=== PATIENT | male | born 1990 | race Caucasian/White ===

== ENCOUNTER 2016-05-22 10:58 | Inpatient (IN) | payer OTHER ==
[2016-05-22 11:06] VITALS: BMI 27.3
--- NOTE | 2016-05-22 12:46 | HP ---
COWS - Scale Resting Pulse: 0= [place] 80 or Below Sweatin= Chills/Flushing Restless Observation: 3= Extraneous Movement Pupil Size: 2= Moderately Dilated Bone or Joint Aches: 2= Severe Diffuse Aches Runny Nose/ Eye Tearin= Runny Nose/Eyes GI Upset > 30mins: 0= None Tremor Observation: 2= Slight Tremor Visible Yawning Observation: 2= >3x During Session Anxiety or Irritability: 2=Irritable/Anxious Goose Flesh Skin: 0=Smooth Skin COWS Score: 16 CIWA Score - CIWA Score Nausea/Vomitin-No Nausea/No Vomiting Muscle Tremors: 4-Moderate,w/Arms Extend Anxiety: 4-Mod. Anxious/Guarded Agitation: 4-Moderately Restless Paroxysmal Sweats: 2 Orientation: 0-Oriented Tacttile Disturbances: 3-Moderate Itch/Numb/Burn Auditory Disturbances: 0-None Visual Disturbances: 0-None Headache: 0-None Present CIWA-Ar Total Score: 17 Admission ROS BHS - HPI Chief Complaint: DETOX TX FOR HEROIN AND ALCOHOL DEPENDENCE Allergies/Adverse Reactions: Allergies Allergy/AdvReac Type Severity Reaction Status Date / Time Fish Containing Products Allergy Severe Difficulty Verified 05/22/16 12:18 Breathing History of Present Illness: 25 Y/O MALE WITH A HX OF HEROIN AND ALCOHOL DEPENDENCE SEEKING DETOX TX. STATES FIRST TIME IN DETOX. Exam Limitations: No Limitations - Ebola screening Have you traveled outside of the country in the last 21 days: No Have you had contact with anyone from an Ebola affected area: No Have you been sick,other than usual withdrawal symptoms: No Do you have a fever: No - Review of Systems Constitutional: Chills, Night Sweats, Changes in sleep EENT: reports: Nose Congestion Respiratory: reports: Shortness of Breath (HX ASTHMA), Wheezing Cardiac: reports: Lightheadedness GI: reports: Constipated : reports: No Symptoms Reported Musculoskeletal: reports: Joint Pain, Muscle Pain Integumentary: reports: No Symptoms Reported Neuro: reports: Headache, Tremors, Unsteady Gait, Dizziness Endocrine: reports: No Symptoms Reported Hematology: reports: No Symptoms Reported Psychiatric: reports: Orientated x3, Agitated, Anxious Other Systems: Reviewed and Negative Patient History - Patient Medical History Hx Anemia: No Hx Asthma: Yes (MDI) Hx Chronic Obstructive Pulmonary Disease (COPD): No Hx Cardiac Disorders: No Hx Hypertension: No Hx Hypercholesterolemia: No HX Cerebrovascular Accident: No Hx Seizures: No Hx Diabetes: No Hx Gastrointestinal Disorders: No Hx Genitourinary Disorders: No Hx Sexually Transmitted Disorders: No Hx Renal Disease (ESRD): No Hx Thyroid Disease: No Hx Human Immunodeficiency Virus (HIV): No (NEGATIVE HX) Hx Hepatitis C: No Hx Depression: No Hx Suicide Attempt: No (DENIES) Hx Schizophrenia: No - Patient Surgical History Past Surgical History: No - PPD History Previous Implant?: Yes Documented Results: Negative w/o proof Implanted On Prior [facility] Admission?: No PPD to be Administered?: Yes - Reproductive History Patient is a Female of Child Bearing Age (11 -55 yrs old): No (MALE) - Smoking Cessation Smoking history: Current every day smoker Have you smoked in the past 12 months: Yes Aproximately how many cigarettes per day: 20 Hx Chewing Tobacco Use: No Initiated information on smoking cessation: Yes 'Breaking Loose' booklet given: 05/22/16 - Substance & Tx. History Hx Alcohol Use: Yes (WHISKEY) Hx Substance Use: Yes (HEROIN/MARIJUANA/PERCOCETS) Substance Use Type: Alcohol, Heroin, Marijuana, Opiates (PERCOCETS), Tranquilizers (USED ONE YR AGO) - Substances Abused Heroin Route: Inhalation Frequency: Daily Amount used: 15 BAGS Age of first use: 20 Date of Last Use: 05/21/16 Alcohol Route: Oral Frequency: Daily Amount used: 1 PINT [place]ISKEY Age of first use: 15 Date of Last Use: 05/21/16 Marijuana/Hashish Route: Smoking Frequency: Daily Amount used: 6 BLUNTS Age of first use: 14 Date of Last Use: 05/21/16 Family Disease History - Family Disease History Family Disease History: Respiratory: Brother (ASTHMA), Sister (ASTHMA) Admission Physical Exam BHS - Vital Signs Vital Signs: Vital Signs - 24 hr 05/22/16 11:02 Temperature 98.2 F Pulse Rate 89 Respiratory 20 Rate Blood Pressure 125/77 - Physical General Appearance: Yes: Moderate Distress, Irritable, Anxious HEENTM: Yes: EOMI, Normocephalic, ALEXEY, Pharynx Normal, Photophobia, Nasal Congestion Respiratory: Yes: Chest Non-Tender, Lungs Clear, Normal Breath Sounds, No Respiratory Distress Neck: Yes: Supple, Trachea in good position Cardiology: Yes: Regular Rhythm, Regular Rate, S1, S2 Abdominal: Yes: Normal Bowel Sounds, Non Tender Genitourinary: Yes: Other (N/C) Back: Yes: Within Normal Limits Musculoskeletal: Yes: full range of Motion, Gait Steady Extremities: Yes: Normal Range of Motion, Non-Tender Neurological: Yes: civil project engineer II-XII NML intact, Fully Oriented, Alert, Motor Strength 5/5 Integumentary: Yes: Dry, Warm Lymphatic: Yes: Within Normal Limits - Diagnostic (1) Opioid dependence with withdrawal Current Visit: Yes Status: Acute (2) Alcohol dependence with uncomplicated withdrawal Current Visit: Yes Status: Acute (3) Asthma Current Visit: Yes Status: Chronic Qualifiers: Asthma severity: mild intermittent Asthma complication type: uncomplicated Qualified Code(s): J45.20 - Mild intermittent asthma, uncomplicated Cleared for Admission [facility] - Detox or Rehab [facility] Level of Care: Medically Managed Detox Regimen/Protocol: Methadone/Valium (REQUESTS VALIUM INSTEAD OF LIBRIUM.) [facility] Breath Alcohol Content Breath Alcohol Content: 0 Urine Drug Screen - Results Drug Screen Negative: No Urine Drug Screen Results: OPI-Opiates, BZO-Benzodiazepines, TCA-Tricyclic Antidepress, OXY-Oxycodone
[2016-05-22] MEDS ORDERED: NICOTINE POLACRILEX 4 MG GUM BUC PRN (12:53)
[2016-05-22] MEDS ORDERED: MENTHOL/PHENOL 1 EACH UD MM PRN (12:53)
[2016-05-22] MEDS ORDERED: guaiFENesin/D-METHORPHAN HB 10 ML UNIT-DOSE CUPS PO PRN (12:53)
[2016-05-22] MEDS ORDERED: ACETAMINOPHEN 325 MG TABLET (FP) PO PRN (12:53)
[2016-05-22] MEDS ORDERED: MAGNESIUM HYDROX 2400MG/30ML ORAL SUSPENSION 30 ML CUP PO PRN (12:53)
[2016-05-22] MEDS ORDERED: hydrOXYzine PAMOATE 25 MG CAPSULE (FP) PO PRN (12:53)
[2016-05-22] MEDS ORDERED: P-EPHED 60MG/TRIPROLIDI 2.5MG TABLET PO PRN (12:53)
[2016-05-22] MEDS ORDERED: MAG HYDROX/AL HYDROX/SIMETH 30 ML UNIT-DOSE CUP PO PRN (12:53)
[2016-05-22] MEDS ORDERED: LOPERAMIDE HCL 2 MG CAPSULE PO PRN (12:53)
[2016-05-22] MEDS ORDERED: IBUPROFEN 400 MG TABLET (FP) PO PRN (12:53)
[2016-05-22] MEDS ORDERED: MAGNESIUM CITRATE 300 ML BOTTLE PO PRN (12:53)
[2016-05-22] MEDS ORDERED: ALBUTEROL SO4 6.7 GM HFA INHALER IH PRN (12:57)
[2016-05-22] MEDS ORDERED: diazePAM 5 MG TABLET PO ONE (13:49)
[2016-05-22] MEDS ORDERED: METHADONE HCL 10 MG TABLET (FOR DETOX USE ONLY) PO ONE ×2 (13:51→23:00)
[2016-05-22] MEDS: diazePAM 5 MG TABLET PO SCH ×2 (14:58→22:06)
[2016-05-22] MEDS: NICOTINE 21 MG/24 HOURS TOPICAL PATCH TD SCH (15:01)
[2016-05-22 16:05] LABS: URINE APPEARANCE SLCLOUDY; URINE BILIRUBIN NEGATIVE (NEGATIVE); URINE BLOOD NEGATIVE (NEGATIVE); URINE COLOR YELLOW; URINE GLUCOSE (UA) NEGATIVE (NEGATIVE); URINE KETONE NEGATIVE (NEGATIVE); URINE LEUK ESTERASE NEGATIVE (NEGATIVE); URINE NITRITE NEGATIVE (NEGATIVE); URINE PROTEIN NEGATIVE (NEGATIVE); URINE UROBILINOGEN NEGATIVE E.U./dl (0.2-1.0)
[2016-05-22] MEDS: THIAMINE HCL 100 MG TABLET (FP) PO SCH (22:06)
[2016-05-22] MEDS: diphenhydrAMINE HCL 50 MG CAPSULE PO PRN (22:07)
[2016-05-23] MEDS: diazePAM 5 MG TABLET PO SCH ×3 (05:43→22:03)
[2016-05-23] MEDS ORDERED: METHADONE HCL 10 MG TABLET (FOR DETOX USE ONLY) PO SCH (10:00)
--- NOTE | 2016-05-23 10:16 | PN ---
S CIWA - CIWA Score Nausea/Vomitin-No Nausea/No Vomiting Muscle Tremors: 4-Moderate,w/Arms Extend Anxiety: 4-Mod. Anxious/Guarded Agitation: 4-Moderately Restless Paroxysmal Sweats: 1-Minimal Palms Moist Orientation: 0-Oriented Tacttile Disturbances: 3-Moderate Itch/Numb/Burn Auditory Disturbances: 0-None Visual Disturbances: 0-None Headache: 0-None Present CIWA-Ar Total Score: 16 BHS COWS - Scale Resting Pulse: 0= [place] 80 or Below Sweatin= Chills/Flushing Restless Observation: 3= Extraneous Movement Pupil Size: 2= Moderately Dilated Bone or Joint Aches: 4=Acute Joint/Muscle Pain Runny Nose/ Eye Tearin= Nasal Congestion GI Upset > 30mins: 1= Stomach Cramp Tremor Observation of Outstretched Hands: 1= Tremor [place], Not Seen Yawning Observation: 2= >3x During Session Anxiety or Irritability: 2=Irritable/Anxious Goose Flesh Skin: 0=Smooth Skin COWS Score: 17 [facility] Progress Note (SOAP) Subjective: ANXIETY,SWEATS,TREMORS,INTERMITTENT SLEEP Objective: 05/23/16 10:17 Vital Signs Temperature 96.5 F L 05/23/16 06:26 Pulse Rate 61 05/23/16 06:26 Respiratory Rate 18 05/23/16 06:26 Blood Pressure 124/68 05/23/16 06:26 O2 Sat by Pulse Oximetry (%) Laboratory Last Values Urine Color Yellow 05/22/16 15:00 Urine Appearance Slcloudy 05/22/16 15:00 Urine pH 7.0 (5.0-8.0) 05/22/16 15:00 Ur Specific [place] 1.021 (1.001-1.035) 05/22/16 15:00 Urine Protein Negative (NEGATIVE) 05/22/16 15:00 Urine Glucose (UA) Negative (NEGATIVE) 05/22/16 15:00 Urine Ketones Negative (NEGATIVE) 05/22/16 15:00 Urine Blood Negative (NEGATIVE) 05/22/16 15:00 Urine Nitrite Negative (NEGATIVE) 05/22/16 15:00 Urine Bilirubin Negative (NEGATIVE) 05/22/16 15:00 Urine Urobilinogen Negative E.U./dl (0.2-1.0) 05/22/16 15:00 Ur Leukocyte Esterase Negative (NEGATIVE) 05/22/16 15:00 Assessment: 05/23/16 10:17 WITHDRAWAL SX Plan: CONTINUE DETOX
[2016-05-23] MEDS: PRENATAL VITAMINS W/ FOLIC ACID TABLET (FP) PO SCH (10:18)
[2016-05-23] MEDS: diazePAM 5 MG TABLET PO PRN (10:18)
[2016-05-23] MEDS: NICOTINE 21 MG/24 HOURS TOPICAL PATCH TD SCH ×2 (10:19→13:25)
[2016-05-23 10:44] LABS: MCH 31.2 pg (25.7-33.7); MCHC 33.4 g/dl (32.0-35.9); MEAN CELL VOLUME 93.4 fl (80-96); MEAN PLT VOLUME 9.7 fl (7.5-11.1); PLATELET COUNT 253 K/MM3 (134-434); RDW 12.8 % (11.9-15.9); WHITE BLOOD COUNT 8.4 K/mm3 (4.0-10.0)
[2016-05-23 10:52] LABS: ALBUMIN 4.3 g/dl (3.4-5.0); ALK PHOS 61 U/L (45-117); ANION GAP 3 (8-16); BILIRUBIN,TOTAL 0.3 mg/dL (0.2-1.0); CALCIUM 9.6 mg/dL (8.5-10.1); CO2 35 mmol/L (21-32); GLUCOSE,RANDOM 82 mg/dL (74-106); SGOT/AST 34 U/L (15-37); SGPT/ALT 29 U/L (12-78); TOT PROT 7.5 g/dl (6.4-8.2)
[2016-05-23 11:01] LABS: SICKLE CELL SCREEN NEGATIVE (NEGATIVE)
--- NOTE | 2016-05-23 11:50 | EKG ---
Test Reason : Blood Pressure : / mmHG Vent. Rate : 062 BPM Atrial Rate : 062 BPM P-R Int : 120 ms QRS Dur : 086 ms QT Int : 426 ms P-R-T Axes : -06 036 034 degrees QTc Int : 432 ms NORMAL SINUS RHYTHM NORMAL ECG NO PREVIOUS ECGS AVAILABLE Confirmed by HERVE HARRIS, ELLIOT ([id number]) on 05/23/2016 11:50:18 AM Referred By: Confirmed By:ELLIOT EDGAR MD
[2016-05-23] MEDS: THIAMINE HCL 100 MG TABLET (FP) PO SCH (22:03)
[2016-05-23] MEDS: diphenhydrAMINE HCL 50 MG CAPSULE PO PRN (22:03)
[2016-05-24] MEDS: diphenhydrAMINE HCL 50 MG CAPSULE PO PRN ×2 (01:34→22:07)
[2016-05-24] MEDS: diazePAM 5 MG TABLET PO PRN ×4 (01:34→17:58)
[2016-05-24] MEDS: METHADONE HCL 5 MG TABLET (FOR DETOX USE ONLY) PO SCH (10:22)
[2016-05-24] MEDS: diazePAM 5 MG TABLET PO SCH ×2 (10:22→22:07)
[2016-05-24] MEDS: PRENATAL VITAMINS W/ FOLIC ACID TABLET (FP) PO SCH (10:22)
[2016-05-24] MEDS: NICOTINE 21 MG/24 HOURS TOPICAL PATCH TD SCH (10:24)
--- NOTE | 2016-05-24 10:38 | PN ---
[facility] CIWA - CIWA Score Nausea/Vomitin-No Nausea/No Vomiting Muscle Tremors: 4-Moderate,w/Arms Extend Anxiety: 4-Mod. Anxious/Guarded Agitation: 4-Moderately Restless Paroxysmal Sweats: 1-Minimal Palms Moist Orientation: 0-Oriented Tacttile Disturbances: 3-Moderate Itch/Numb/Burn Auditory Disturbances: 0-None Visual Disturbances: 0-None Headache: 0-None Present CIWA-Ar Total Score: 16 S COWS - Scale Resting Pulse: 0= [place] 80 or Below Sweatin= Chills/Flushing Restless Observation: 3= Extraneous Movement Pupil Size: 2= Moderately Dilated Bone or Joint Aches: 4=Acute Joint/Muscle Pain Runny Nose/ Eye Tearin= Nasal Congestion GI Upset > 30mins: 1= Stomach Cramp Tremor Observation of Outstretched Hands: 1= Tremor [place], Not Seen Yawning Observation: 1= 1-2x During Session Anxiety or Irritability: 2=Irritable/Anxious Goose Flesh Skin: 0=Smooth Skin COWS Score: 16 [facility] Progress Note (SOAP) Subjective: ANXIETY,SWEATS,SLIGHT TREMORS,FATIGUE. Objective: 05/24/16 10:37 Vital Signs Temperature 98.2 F 05/24/16 10:16 Pulse Rate 79 05/24/16 10:16 Respiratory Rate 18 05/24/16 10:16 Blood Pressure 120/73 05/24/16 10:16 O2 Sat by Pulse Oximetry (%) Laboratory Last Values WBC 8.4 K/mm3 (4.0-10.0) 05/23/16 05:30 RBC 4.96 M/mm3 (4.00-5.60) 05/23/16 05:30 Hgb 15.5 GM/dL (11.7-16.9) 05/23/16 05:30 Hct 46.4 % (35.4-49) 05/23/16 05:30 MCV 93.4 fl (80-96) 05/23/16 05:30 MCHC 33.4 g/dl (32.0-35.9) 05/23/16 05:30 RDW 12.8 % (11.9-15.9) 05/23/16 05:30 Plt Count 253 K/MM3 (134-434) 05/23/16 05:30 MPV 9.7 fl (7.5-11.1) 05/23/16 05:30 Sickle Cell Screen Negative (NEGATIVE) 05/23/16 05:30 Sodium 139 mmol/L (136-145) 05/23/16 05:30 Potassium 4.5 mmol/L (3.5-5.1) 05/23/16 05:30 Chloride 101 mmol/L (98-107) 05/23/16 05:30 Carbon Dioxide 35 mmol/L (21-32) H 05/23/16 05:30 Anion Gap 3 (8-16) L 05/23/16 05:30 BUN 15 mg/dL (7-18) 05/23/16 05:30 Creatinine 1.0 mg/dL (0.7-1.3) 05/23/16 05:30 Creat Clearance w eGFR > 60 (>60) 05/23/16 05:30 Random Glucose 82 mg/dL (74-106) 05/23/16 05:30 Calcium 9.6 mg/dL (8.5-10.1) 05/23/16 05:30 Total Bilirubin 0.3 mg/dL (0.2-1.0) 05/23/16 05:30 AST 34 U/L (15-37) 05/23/16 05:30 ALT 29 U/L (12-78) 05/23/16 05:30 Alkaline Phosphatase 61 U/L (45-117) 05/23/16 05:30 Total Protein 7.5 g/dl (6.4-8.2) 05/23/16 05:30 Albumin 4.3 g/dl (3.4-5.0) 05/23/16 05:30 Urine Color Yellow 05/22/16 15:00 Urine Appearance Slcloudy 05/22/16 15:00 Urine pH 7.0 (5.0-8.0) 05/22/16 15:00 Ur Specific [place] 1.021 (1.001-1.035) 05/22/16 15:00 Urine Protein Negative (NEGATIVE) 05/22/16 15:00 Urine Glucose (UA) Negative (NEGATIVE) 05/22/16 15:00 Urine Ketones Negative (NEGATIVE) 05/22/16 15:00 Urine Blood Negative (NEGATIVE) 05/22/16 15:00 Urine Nitrite Negative (NEGATIVE) 05/22/16 15:00 Urine Bilirubin Negative (NEGATIVE) 05/22/16 15:00 Urine Urobilinogen Negative E.U./dl (0.2-1.0) 05/22/16 15:00 Ur Leukocyte Esterase Negative (NEGATIVE) 05/22/16 15:00 RPR Titer Nonreactive (NONREACTIVE) 05/23/16 05:30 Assessment: 05/24/16 10:37 WITHDRAWAL SX Plan: CONTINUE DETOX
[2016-05-24] MEDS: THIAMINE HCL 100 MG TABLET (FP) PO SCH (22:07)
[2016-05-25] MEDS: diazePAM 5 MG TABLET PO PRN (05:47)
[2016-05-25] MEDS ORDERED: CYCLOBENZAPRINE HCL 10 MG TABLET (FP) PO PRN (07:08)
[2016-05-25] MEDS: METHADONE HCL 5 MG TABLET (FOR DETOX USE ONLY) PO SCH (10:33)
[2016-05-25] MEDS: diazePAM 5 MG TABLET PO SCH ×2 (10:34→22:15)
[2016-05-25] MEDS: PRENATAL VITAMINS W/ FOLIC ACID TABLET (FP) PO SCH (10:34)
[2016-05-25] MEDS: NICOTINE 21 MG/24 HOURS TOPICAL PATCH TD SCH (10:34)
[2016-05-25] MEDS: CYCLOBENZAPRINE HCL 10 MG TABLET (FP) PO SCH ×2 (10:36→17:08)
[2016-05-25] MEDS: NAPROXEN 500 MG TABLET (FP) PO SCH ×2 (10:36→22:15)
--- NOTE | 2016-05-25 10:59 | PN ---
BHS Progress Note (SOAP) Subjective: ANXIETY,SWEATS,FATIGUE, Objective: 05/25/16 10:58 Vital Signs Temperature 97.1 F L 05/25/16 10:11 Pulse Rate 72 05/25/16 10:11 Respiratory Rate 18 05/25/16 10:11 Blood Pressure 121/68 05/25/16 10:11 O2 Sat by Pulse Oximetry (%) Assessment: 05/25/16 10:58 WITHDRAWAL SX Plan: CONTINUE DETOX
[2016-05-25] MEDS: THIAMINE HCL 100 MG TABLET (FP) PO SCH (22:15)
[2016-05-25] MEDS: diphenhydrAMINE HCL 50 MG CAPSULE PO PRN (22:15)
[2016-05-26] MEDS: diphenhydrAMINE HCL 50 MG CAPSULE PO PRN ×2 (00:54→22:11)
[2016-05-26] MEDS: CYCLOBENZAPRINE HCL 10 MG TABLET (FP) PO SCH ×3 (05:26→22:12)
[2016-05-26] MEDS ORDERED: METHADONE HCL 10 MG TABLET (FOR DETOX USE ONLY) PO SCH (10:00)
[2016-05-26] MEDS ORDERED: diazePAM 5 MG TABLET PO SCH (10:00)
[2016-05-26] MEDS: NICOTINE 21 MG/24 HOURS TOPICAL PATCH TD SCH (10:27)
[2016-05-26] MEDS: PRENATAL VITAMINS W/ FOLIC ACID TABLET (FP) PO SCH (10:27)
[2016-05-26] MEDS: NAPROXEN 500 MG TABLET (FP) PO SCH ×2 (10:27→22:12)
--- NOTE | 2016-05-26 11:25 | PN ---
BHS Progress Note (SOAP) Subjective: Back pain,shakes, sweats and nausea Objective: 05/26/16 11:24 Vital Signs - 8 hr 05/26/16 05/26/16 05/26/16 03:30 06:29 11:00 Temperature 96.8 F L 96.4 F L Pulse Rate 63 71 Respiratory 18 16 19 Rate Blood Pressure 134/76 126/75 Laboratory Last Values WBC 8.4 K/mm3 (4.0-10.0) 05/23/16 05:30 RBC 4.96 M/mm3 (4.00-5.60) 05/23/16 05:30 Hgb 15.5 GM/dL (11.7-16.9) 05/23/16 05:30 Hct 46.4 % (35.4-49) 05/23/16 05:30 MCV 93.4 fl (80-96) 05/23/16 05:30 MCHC 33.4 g/dl (32.0-35.9) 05/23/16 05:30 RDW 12.8 % (11.9-15.9) 05/23/16 05:30 Plt Count 253 K/MM3 (134-434) 05/23/16 05:30 MPV 9.7 fl (7.5-11.1) 05/23/16 05:30 Sickle Cell Screen Negative (NEGATIVE) 05/23/16 05:30 Sodium 139 mmol/L (136-145) 05/23/16 05:30 Potassium 4.5 mmol/L (3.5-5.1) 05/23/16 05:30 Chloride 101 mmol/L (98-107) 05/23/16 05:30 Carbon Dioxide 35 mmol/L (21-32) H 05/23/16 05:30 Anion Gap 3 (8-16) L 05/23/16 05:30 BUN 15 mg/dL (7-18) 05/23/16 05:30 Creatinine 1.0 mg/dL (0.7-1.3) 05/23/16 05:30 Creat Clearance w eGFR > 60 (>60) 05/23/16 05:30 Random Glucose 82 mg/dL (74-106) 05/23/16 05:30 Calcium 9.6 mg/dL (8.5-10.1) 05/23/16 05:30 Total Bilirubin 0.3 mg/dL (0.2-1.0) 05/23/16 05:30 AST 34 U/L (15-37) 05/23/16 05:30 ALT 29 U/L (12-78) 05/23/16 05:30 Alkaline Phosphatase 61 U/L (45-117) 05/23/16 05:30 Total Protein 7.5 g/dl (6.4-8.2) 05/23/16 05:30 Albumin 4.3 g/dl (3.4-5.0) 05/23/16 05:30 Urine Color Yellow 05/22/16 15:00 Urine Appearance Slcloudy 05/22/16 15:00 Urine pH 7.0 (5.0-8.0) 05/22/16 15:00 Ur Specific [place] 1.021 (1.001-1.035) 05/22/16 15:00 Urine Protein Negative (NEGATIVE) 05/22/16 15:00 Urine Glucose (UA) Negative (NEGATIVE) 05/22/16 15:00 Urine Ketones Negative (NEGATIVE) 05/22/16 15:00 Urine Blood Negative (NEGATIVE) 05/22/16 15:00 Urine Nitrite Negative (NEGATIVE) 05/22/16 15:00 Urine Bilirubin Negative (NEGATIVE) 05/22/16 15:00 Urine Urobilinogen Negative E.U./dl (0.2-1.0) 05/22/16 15:00 Ur Leukocyte Esterase Negative (NEGATIVE) 05/22/16 15:00 RPR Titer Nonreactive (NONREACTIVE) 05/23/16 05:30 Labs noted Assessment: 05/26/16 11:24 withdrawal sx Plan: continue detox
[2016-05-26] MEDS: THIAMINE HCL 100 MG TABLET (FP) PO SCH (22:12)
[2016-05-27] MEDS: diphenhydrAMINE HCL 50 MG CAPSULE PO PRN (01:06)
[2016-05-27] MEDS: CYCLOBENZAPRINE HCL 10 MG TABLET (FP) PO SCH (05:31)
[2016-05-27] MEDS ORDERED: METHADONE HCL 5 MG TABLET (FOR DETOX USE ONLY) PO SCH (06:00)
[2016-05-27] MEDS: NAPROXEN 500 MG TABLET (FP) PO SCH (10:30)
[2016-05-27] MEDS: NICOTINE 21 MG/24 HOURS TOPICAL PATCH TD SCH (10:30)
[2016-05-27] MEDS: PRENATAL VITAMINS W/ FOLIC ACID TABLET (FP) PO SCH (10:30)
--- NOTE | 2016-05-27 10:45 | DS ---
[facility] Detox Discharge Summary Admission Date: 05/22/16 Discharge Date: 05/27/16 - History Present History: Alcohol Dependence, Cannabis Dependence, Opioid Dependence Pertinent Past History: Asthma - Physical Exam Results Vital Signs: Vital Signs Temperature 96.3 F L 05/27/16 06:26 Pulse Rate 67 05/27/16 06:26 Respiratory Rate 16 05/27/16 06:26 Blood Pressure 136/73 05/27/16 06:26 O2 Sat by Pulse Oximetry (%) Pertinent Admission Physical Exam Findings: Withdrawal Symptoms Laboratory Last Values WBC 8.4 K/mm3 (4.0-10.0) 05/23/16 05:30 RBC 4.96 M/mm3 (4.00-5.60) 05/23/16 05:30 Hgb 15.5 GM/dL (11.7-16.9) 05/23/16 05:30 Hct 46.4 % (35.4-49) 05/23/16 05:30 MCV 93.4 fl (80-96) 05/23/16 05:30 MCHC 33.4 g/dl (32.0-35.9) 05/23/16 05:30 RDW 12.8 % (11.9-15.9) 05/23/16 05:30 Plt Count 253 K/MM3 (134-434) 05/23/16 05:30 MPV 9.7 fl (7.5-11.1) 05/23/16 05:30 Sickle Cell Screen Negative (NEGATIVE) 05/23/16 05:30 Sodium 139 mmol/L (136-145) 05/23/16 05:30 Potassium 4.5 mmol/L (3.5-5.1) 05/23/16 05:30 Chloride 101 mmol/L (98-107) 05/23/16 05:30 Carbon Dioxide 35 mmol/L (21-32) H 05/23/16 05:30 Anion Gap 3 (8-16) L 05/23/16 05:30 BUN 15 mg/dL (7-18) 05/23/16 05:30 Creatinine 1.0 mg/dL (0.7-1.3) 05/23/16 05:30 Creat Clearance w eGFR > 60 (>60) 05/23/16 05:30 Random Glucose 82 mg/dL (74-106) 05/23/16 05:30 Calcium 9.6 mg/dL (8.5-10.1) 05/23/16 05:30 Total Bilirubin 0.3 mg/dL (0.2-1.0) 05/23/16 05:30 AST 34 U/L (15-37) 05/23/16 05:30 ALT 29 U/L (12-78) 05/23/16 05:30 Alkaline Phosphatase 61 U/L (45-117) 05/23/16 05:30 Total Protein 7.5 g/dl (6.4-8.2) 05/23/16 05:30 Albumin 4.3 g/dl (3.4-5.0) 05/23/16 05:30 Urine Color Yellow 05/22/16 15:00 Urine Appearance Slcloudy 05/22/16 15:00 Urine pH 7.0 (5.0-8.0) 05/22/16 15:00 Ur Specific [place] 1.021 (1.001-1.035) 05/22/16 15:00 Urine Protein Negative (NEGATIVE) 05/22/16 15:00 Urine Glucose (UA) Negative (NEGATIVE) 05/22/16 15:00 Urine Ketones Negative (NEGATIVE) 05/22/16 15:00 Urine Blood Negative (NEGATIVE) 05/22/16 15:00 Urine Nitrite Negative (NEGATIVE) 05/22/16 15:00 Urine Bilirubin Negative (NEGATIVE) 05/22/16 15:00 Urine Urobilinogen Negative E.U./dl (0.2-1.0) 05/22/16 15:00 Ur Leukocyte Esterase Negative (NEGATIVE) 05/22/16 15:00 RPR Titer Nonreactive (NONREACTIVE) 05/23/16 05:30 Labs noted - Treatment Hospital Course: Detox Protocol Followed, Detoxed Safely, Responded well, Discharged Condition Good Patient has Accepted a Rehab Referral to: Declined - Medication Discharge Medications: Ambulatory Orders Albuterol Sulfate Inhaler - [Ventolin HFA Inhaler -] 2 inh PO Q4H PRN 05/22/16 - Diagnosis (1) Alcohol dependence with uncomplicated withdrawal Current Visit: Yes Status: Acute (2) Opioid dependence with withdrawal Current Visit: Yes Status: Acute (3) Asthma Current Visit: Yes Status: Chronic Qualifiers: Asthma severity: mild intermittent Asthma complication type: uncomplicated Qualified Code(s): J45.20 - Mild intermittent asthma, uncomplicated - AMA Did Patient Leave Against Medical Advice: No
[2016-05-27 11:33] VITALS: BP 141/78; PULSE 92; TEMP 96
== END 2016-05-27 12:02 | disposition other institution (70) | DRG 773 ==
LOC: YASAS 10:58 → Y3N 13:00 → Y3W 05-27 12:02 → UNDODISIN 05-27 12:42
PROVIDERS: ADMIT Internal Medicine; ATTEND Internal Medicine
PROC: HZ2ZZZZ Detoxification Services for Substance Abuse Treatment (ICD-10-PCS; principal; 2016-05-22)
DX: F11.23 Opioid dependence with withdrawal (principal); F10.230 Alcohol dependence with withdrawal, uncomplicated; F17.210 Nicotine dependence, cigarettes, uncomplicated; J45.20 Mild intermittent asthma, uncomplicated
CPT/HCPCS: 36415; 80053; 81003; 85027; 85660; 86593; 93005; 93010

== ENCOUNTER 2016-05-27 12:38 | Inpatient (IN) | payer OTHER ==
[2016-05-27] MEDS ORDERED: MAGNESIUM CITRATE 300 ML BOTTLE PO PRN (13:57)
[2016-05-27] MEDS ORDERED: MAG HYDROX/AL HYDROX/SIMETH 30 ML UNIT-DOSE CUP PO PRN (13:57)
[2016-05-27] MEDS ORDERED: guaiFENesin/D-METHORPHAN HB 10 ML UNIT-DOSE CUPS PO PRN (13:57)
[2016-05-27] MEDS ORDERED: ACETAMINOPHEN 325 MG TABLET (FP) PO PRN (13:57)
[2016-05-27] MEDS ORDERED: LOPERAMIDE HCL 2 MG CAPSULE PO PRN (13:57)
[2016-05-27] MEDS ORDERED: P-EPHED 60MG/TRIPROLIDI 2.5MG TABLET PO PRN (13:57)
[2016-05-27] MEDS ORDERED: MENTHOL/PHENOL 1 EACH UD MM PRN (13:57)
[2016-05-27] MEDS ORDERED: MAGNESIUM HYDROX 2400MG/30ML ORAL SUSPENSION 30 ML CUP PO PRN (13:57)
[2016-05-27] MEDS ORDERED: ALBUTEROL SO4 6.7 GM HFA INHALER IH PRN (13:58)
--- NOTE | 2016-05-27 13:59 | HP ---
[facility] Rehab Assess/Revision - Admission History Admitted to Rehab from: [facility] Date of Admission to Rehab: 05/27/16 - Vital signs Vital Signs: Vital Signs Period Temp Pulse Resp BP Sys/[place] Pulse Ox Last 24 Hr 97.7 F 92 20 126/66 - Findings Detox History & Physical reviewed: Yes Concur with findings: Yes
[2016-05-27] MEDS: diphenhydrAMINE HCL 50 MG CAPSULE PO PRN (21:53)
[2016-05-27] MEDS: THIAMINE HCL 100 MG TABLET (FP) PO SCH (21:53)
--- NOTE | 2016-05-28 07:22 | HP ---
Psychiatrist Admission - Data Date of interview: 05/28/16 Admission source: 3N Identifying data: This is the first [facility] admission for this 25 years old single male, unemployed with no source of income , domiciled living with his father Medical History: Significant for history of Asthma. Smokes cigarettes 2 ppd Psychiatric History: Denies history of previous psychiatric treatment Physical/Sexual Abuse/Trauma History: Denies history of physical, sexual abuse abuse as well as DV relationship Additional Comment: Reports history of one felony conviction in 2008 and served 4 years in [facility] Vital Signs: Vital Signs - 24 hr 05/27/16 05/28/16 05/28/16 13:57 00:30 03:30 Temperature 97.7 F Pulse Rate 92 H Respiratory 20 16 16 Rate Blood Pressure 126/66 05/28/16 07:05 Temperature 97.6 F Pulse Rate 80 Respiratory 18 Rate Blood Pressure 128/76 Allergies/Adverse Reactions: Allergies Allergy/AdvReac Type Severity Reaction Status Date / Time Fish Containing Products Allergy Severe Difficulty Verified 05/22/16 12:18 Breathing Date of last physical exam: 05/22/16 Concur with the findings of this exam: Yes - Substance Abuse/Tx History Hx Alcohol Use: Yes Hx Substance Use: Yes Substance Use Type: Alcohol (Srtarted drinking alcohol at age 15, consumes one pint of whisky daily. Last drink on 05/21/16), Heroin (Started using heroin at age 20, consumes 15 bags daily. Last used on 05/21/16), Marijuana (Started smoking marijuana at age 14, consumes 6 blunts daily. Last smoked on 05/21/16) Hx Substance Use Treatment: No - Admission Criteria Previous failed treatment: No Poor recovery environment: Yes Comorbidities: Yes Lacks judgement: Yes Mental Status Exam - Mental Status Exam Alert and Oriented to: Time, Place, Person Cognitive Function: Fair Patient Appearance: Well Groomed Mood: Hopeful, Euthymic Patient Behavior: Cooperative Speech Pattern: Clear Voice Loudness: Normal Thought Process: Intact Thought Disorder: Not Present Hallucinations: Denies Suicidal Ideation: Denies Homicidal Ideation: Denies Insight/Judgement: Fair Sleep: Poorly Appetite: Good Muscle strength/Tone: Normal Gait/Station: Normal Psychiatric Findings - Problem List ([place] 1, 2,3) (1) Alcohol dependence with uncomplicated withdrawal Current Visit: No Status: Acute (2) Opioid dependence with withdrawal Current Visit: No Status: Acute (3) Cannabis dependence Current Visit: Yes Status: Acute (4) Nicotine dependence Current Visit: Yes Status: Acute (5) Asthma Current Visit: No Status: Chronic Qualifiers: Asthma severity: mild intermittent Asthma complication type: uncomplicated Qualified Code(s): J45.20 - Mild intermittent asthma, uncomplicated - Initial Treatment Plan Initial Treatment Plan: Monitor progress
[2016-05-28] MEDS: PRENATAL VITAMINS W/ FOLIC ACID TABLET (FP) PO SCH (10:29)
[2016-05-28] MEDS: NICOTINE 21 MG/24 HOURS TOPICAL PATCH TD SCH (10:31)
[2016-05-28] MEDS: CYCLOBENZAPRINE HCL 10 MG TABLET (FP) PO PRN ×2 (14:43→21:23)
[2016-05-28] MEDS: NICOTINE POLACRILEX 2 MG GUM BUC PRN (14:44)
[2016-05-28] MEDS: diphenhydrAMINE HCL 50 MG CAPSULE PO PRN (21:23)
[2016-05-28] MEDS: THIAMINE HCL 100 MG TABLET (FP) PO SCH (21:23)
[2016-05-29] MEDS: diphenhydrAMINE HCL 50 MG CAPSULE PO PRN ×2 (00:28→21:26)
[2016-05-29] MEDS: CYCLOBENZAPRINE HCL 10 MG TABLET (FP) PO PRN ×2 (08:50→14:06)
[2016-05-29] MEDS: NICOTINE 21 MG/24 HOURS TOPICAL PATCH TD SCH (09:51)
[2016-05-29] MEDS: PRENATAL VITAMINS W/ FOLIC ACID TABLET (FP) PO SCH (10:27)
[2016-05-29] MEDS: IBUPROFEN 400 MG TABLET (FP) PO PRN ×2 (14:06→21:27)
[2016-05-29] MEDS: THIAMINE HCL 100 MG TABLET (FP) PO SCH (21:26)
[2016-05-30] MEDS: CYCLOBENZAPRINE HCL 10 MG TABLET (FP) PO PRN (07:17)
[2016-05-30] MEDS: NICOTINE 21 MG/24 HOURS TOPICAL PATCH TD SCH (09:48)
[2016-05-30] MEDS: PRENATAL VITAMINS W/ FOLIC ACID TABLET (FP) PO SCH (09:48)
[2016-05-30] MEDS: IBUPROFEN 400 MG TABLET (FP) PO PRN (09:49)
[2016-05-30] MEDS: NICOTINE POLACRILEX 2 MG GUM BUC PRN ×2 (09:50→15:17)
[2016-05-30] MEDS ORDERED: cloNIDine HCL 0.1 MG TABLET PO ONE (14:33)
[2016-05-30] MEDS: THIAMINE HCL 100 MG TABLET (FP) PO SCH (21:38)
[2016-05-30] MEDS: cloNIDine HCL 0.1 MG TABLET PO SCH (21:38)
[2016-05-31] MEDS: cloNIDine HCL 0.1 MG TABLET PO SCH ×2 (09:38→21:15)
[2016-05-31] MEDS: PRENATAL VITAMINS W/ FOLIC ACID TABLET (FP) PO SCH (09:38)
[2016-05-31] MEDS: NICOTINE 21 MG/24 HOURS TOPICAL PATCH TD SCH (09:39)
[2016-05-31] MEDS: IBUPROFEN 400 MG TABLET (FP) PO PRN (09:39)
[2016-05-31] MEDS: THIAMINE HCL 100 MG TABLET (FP) PO SCH (21:15)
[2016-05-31] MEDS: diphenhydrAMINE HCL 50 MG CAPSULE PO PRN (23:49)
[2016-06-01] MEDS: cloNIDine HCL 0.1 MG TABLET PO SCH ×2 (09:43→21:46)
[2016-06-01] MEDS: PRENATAL VITAMINS W/ FOLIC ACID TABLET (FP) PO SCH (09:43)
[2016-06-01] MEDS: NICOTINE 21 MG/24 HOURS TOPICAL PATCH TD SCH (09:44)
[2016-06-01] MEDS: diphenhydrAMINE HCL 50 MG CAPSULE PO PRN ×2 (21:46→23:38)
[2016-06-01] MEDS: CYCLOBENZAPRINE HCL 10 MG TABLET (FP) PO PRN (21:46)
[2016-06-01] MEDS: THIAMINE HCL 100 MG TABLET (FP) PO SCH (21:46)
[2016-06-02] MEDS: NICOTINE 21 MG/24 HOURS TOPICAL PATCH TD SCH (09:46)
[2016-06-02] MEDS: cloNIDine HCL 0.1 MG TABLET PO SCH ×2 (09:46→21:12)
[2016-06-02] MEDS: PRENATAL VITAMINS W/ FOLIC ACID TABLET (FP) PO SCH (09:46)
[2016-06-02] MEDS: THIAMINE HCL 100 MG TABLET (FP) PO SCH (21:12)
[2016-06-02] MEDS: diphenhydrAMINE HCL 50 MG CAPSULE PO PRN ×2 (21:12→23:13)
[2016-06-03] MEDS: PRENATAL VITAMINS W/ FOLIC ACID TABLET (FP) PO SCH (09:34)
[2016-06-03] MEDS: cloNIDine HCL 0.1 MG TABLET PO SCH ×2 (09:34→21:21)
[2016-06-03] MEDS: NICOTINE 21 MG/24 HOURS TOPICAL PATCH TD SCH (09:35)
[2016-06-03] MEDS: diphenhydrAMINE HCL 50 MG CAPSULE PO PRN (21:21)
[2016-06-03] MEDS: THIAMINE HCL 100 MG TABLET (FP) PO SCH (21:21)
[2016-06-04] MEDS: cloNIDine HCL 0.1 MG TABLET PO SCH ×2 (09:44→21:56)
[2016-06-04] MEDS: PRENATAL VITAMINS W/ FOLIC ACID TABLET (FP) PO SCH (09:44)
[2016-06-04] MEDS: NICOTINE 21 MG/24 HOURS TOPICAL PATCH TD SCH (09:45)
[2016-06-04] MEDS: NICOTINE POLACRILEX 2 MG GUM BUC PRN ×2 (09:48→19:12)
[2016-06-04] MEDS: IBUPROFEN 400 MG TABLET (FP) PO PRN ×2 (10:26→21:58)
--- NOTE | 2016-06-04 10:41 | PN ---
Psychiatric Progress Note Vital Signs: Vital Signs Period Temp Pulse Resp BP Sys/[place] Pulse Ox Last 24 Hr 98.1 F 78-92 18-18 126-147/78-87 Date of Session: 06/04/16 Chief Complaint:: Insomnia HPI: Patient addressing Alcohol, Opoid and Cannabis Dependence comorbid with Nicotine Dependence ROS: Asthma Current Medications: Active Medications Generic Name Dose Route Start Last Admin Trade Name Freq PRN Reason Stop Dose Admin Acetaminophen 650 mg 05/27/16 13:57 Tylenol - PO Q4H PRN FEVER OR PAIN Al Hydroxide/Mg Hydroxide 30 ml 05/27/16 13:57 Mylanta Oral Suspension - PO Q6H PRN DYSPEPSIA Albuterol Sulfate 2 puff 05/27/16 13:58 05/31/16 06:00 Ventolin Hfa Inhaler - IH 2 inh Q4H PRN Administration ASTHMA Clonidine 0.1 mg 05/30/16 22:00 06/04/16 09:44 Catapres - PO 0.1 mg BID BROOKS Administration Cyclobenzaprine HCl 10 mg 05/28/16 13:07 06/01/16 21:46 Flexeril - PO 10 mg TID PRN Administration MUSCLE SPASMS Diphenhydramine HCl 50 mg 05/27/16 13:57 06/03/16 21:21 Benadryl - PO 50 mg HSMR1 PRN Administration FOR ITCHING Eucalyptus/Menthol/Phenol/Sorbitol 1 each 05/27/16 13:57 Cepastat Lozenge - MM Q4H PRN SORE THROAT Guaifenesin 10 ml 05/27/16 13:57 Robitussin Dm - PO Q6H PRN COUGH Ibuprofen 800 mg 05/30/16 13:47 06/04/16 10:26 Motrin - PO 800 mg Q6H PRN Administration PAIN Loperamide HCl 4 mg 05/27/16 13:57 Imodium - PO Q6H PRN DIARRHEA Magnesium Hydroxide 30 ml 05/27/16 13:57 Milk Of Magnesia - PO DAILY PRN CONSTIPATION Nicotine 21 mg 05/28/16 10:00 06/04/16 09:45 Nicoderm Patch - TD Not Given DAILY BROOKS Nicotine Polacrilex 2 mg 05/27/16 13:57 06/04/16 09:48 Nicorette Gum - BUC 2 mg Q2H PRN Administration NICOTINE REPLACEMENT RX Multivit/Folic Acid/Iron 1 tab 05/28/16 10:00 06/04/16 09:44 Vitamins ([facility]) - PO 1 tab DAILY BROOKS Administration Pseudoephedrine/Triprolidine 1 combo 05/27/16 13:57 Actifed - PO TID PRN NASAL CONGESTION Thiamine HCl 100 mg 05/27/16 22:00 06/03/16 21:21 Vitamin B1 - PO 100 mg HS BROOKS Administration Current Side Effect: No Lab tests ordered: Yes Lab tests reviewed: Yes Provider note:: Patient reports experiencing difficulty to sleep. 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 Sleep properties as well as other side-effects of Trazadone discussed with patient and he agreed to try it Total face to face time:: 25 Mental Status Exam - Mental Status Exam Alert and Oriented to: Time, Place, Person Cognitive Function: Fair Patient Appearance: Well Groomed Mood: Hopeful, Euthymic Affect: Appropriate Patient Behavior: Cooperative Speech Pattern: Clear Voice Loudness: Normal Thought Process: Intact Thought Disorder: Not Present Hallucinations: Denies Suicidal Ideation: Denies Homicidal Ideation: Denies Insight/Judgement: Fair Sleep: Poorly Appetite: Good Muscle strength/Tone: Normal Gait/Station: Normal Psychiatric Treatment Plan - Problem List (1) Alcohol dependence with uncomplicated withdrawal Current Visit: No (2) Opioid dependence with withdrawal Current Visit: No (3) Cannabis dependence Current Visit: Yes (4) Nicotine dependence Current Visit: Yes (5) Asthma Current Visit: No Qualifiers: Asthma severity: mild intermittent Asthma complication type: uncomplicated Qualified Code(s): J45.20 - Mild intermittent asthma, uncomplicated Initial treatment plan: 1) Start Trazadone 100 mg po HS for insomnia. 2) Monitor progress
[2016-06-04] MEDS: CYCLOBENZAPRINE HCL 10 MG TABLET (FP) PO PRN (13:04)
[2016-06-04] MEDS: LIDOCAINE 5% TOPICAL PATCH TP SCH (14:04)
--- NOTE | 2016-06-04 14:49 | PN ---
Psychiatric Progress Note Vital Signs: Vital Signs Period Temp Pulse Resp BP Sys/[place] Pulse Ox Last 24 Hr 98.1 F 78-92 18-18 126-147/78-87 Date of Session: 06/04/16 (') Chief Complaint:: Psychiatrist Discharge Note HPI: Patient addressing Alcohol, Opoid and Cannabis Dependence comorbid with Nicotine Dependence ROS: Asthma Current Medications: Active Medications Generic Name Dose Route Start Last Admin Trade Name Freq PRN Reason Stop Dose Admin Acetaminophen 650 mg 05/27/16 13:57 06/04/16 13:04 Tylenol - PO 650 mg Q4H PRN Administration FEVER OR PAIN Al Hydroxide/Mg Hydroxide 30 ml 05/27/16 13:57 Mylanta Oral Suspension - PO Q6H PRN DYSPEPSIA Albuterol Sulfate 2 puff 05/27/16 13:58 05/31/16 06:00 Ventolin Hfa Inhaler - IH 2 inh Q4H PRN Administration ASTHMA Clonidine 0.1 mg 05/30/16 22:00 06/04/16 09:44 Catapres - PO 0.1 mg BID BROOKS Administration Cyclobenzaprine HCl 10 mg 05/28/16 13:07 06/04/16 13:04 Flexeril - PO 10 mg TID PRN Administration MUSCLE SPASMS Diphenhydramine HCl 50 mg 05/27/16 13:57 06/03/16 21:21 Benadryl - PO 50 mg HSMR1 PRN Administration FOR ITCHING Eucalyptus/Menthol/Phenol/Sorbitol 1 each 05/27/16 13:57 Cepastat Lozenge - MM Q4H PRN SORE THROAT Guaifenesin 10 ml 05/27/16 13:57 Robitussin Dm - PO Q6H PRN COUGH Ibuprofen 800 mg 05/30/16 13:47 06/04/16 10:26 Motrin - PO 800 mg Q6H PRN Administration PAIN Lidocaine 1 patch 06/04/16 13:45 Lidoderm Patch - TP DAILY BROOKS Loperamide HCl 4 mg 05/27/16 13:57 Imodium - PO Q6H PRN DIARRHEA Magnesium Hydroxide 30 ml 05/27/16 13:57 Milk Of Magnesia - PO DAILY PRN CONSTIPATION Nicotine 21 mg 05/28/16 10:00 06/04/16 09:45 Nicoderm Patch - TD Not Given DAILY BROOKS Nicotine Polacrilex 2 mg 05/27/16 13:57 06/04/16 09:48 Nicorette Gum - BUC 2 mg Q2H PRN Administration NICOTINE REPLACEMENT RX Multivit/Folic Acid/Iron 1 tab 05/28/16 10:00 06/04/16 09:44 Vitamins (Sjr) - PO 1 tab DAILY BROOKS Administration Pseudoephedrine/Triprolidine 1 combo 05/27/16 13:57 Actifed - PO TID PRN NASAL CONGESTION Thiamine HCl 100 mg 05/27/16 22:00 06/03/16 21:21 Vitamin B1 - PO 100 mg HS BROOKS Administration Trazodone HCl 100 mg 06/04/16 22:00 Desyrel - PO HS BROOKS Current Side Effect: No Lab tests ordered: Yes Lab tests reviewed: Yes Provider note:: Patient will complete this program on 06/05/16. He has partially met his treatment goals and will continue to address his issues in outpatient treatment at [facility]. Told senior technical writer that from his participation in this program, he has learned about his triggers and the importance of establishing a network in order to maintain abstinent. He responded well to trazadone 100 mg po HS for insomnia. Script for 30 days supply of that medication will be electronically transmitted to [facility] at [address] [place] [address]. He is stable for discharge on 06/05/16 Total face to face time:: 35 Mental Status Exam - Mental Status Exam Alert and Oriented to: Time, Place, Person Cognitive Function: Fair Patient Appearance: Well Groomed Mood: Hopeful, Euthymic Affect: Appropriate Patient Behavior: Cooperative Speech Pattern: Clear Voice Loudness: Normal Thought Process: Intact Thought Disorder: Not Present Hallucinations: Denies Suicidal Ideation: Denies Homicidal Ideation: Denies Insight/Judgement: Fair Sleep: Fair Appetite: Good Muscle strength/Tone: Normal Gait/Station: Spastic Psychiatric Treatment Plan - Problem List (1) Alcohol dependence with uncomplicated withdrawal Current Visit: No (2) Opioid dependence with withdrawal Current Visit: No (3) Cannabis dependence Current Visit: Yes (4) Nicotine dependence Current Visit: Yes (5) Asthma Current Visit: No Qualifiers: Asthma severity: mild intermittent Asthma complication type: uncomplicated Qualified Code(s): J45.20 - Mild intermittent asthma, uncomplicated Initial treatment plan: Patient is dicharged tomorrow and he will be referred to [facility] for outpatient treatment
[2016-06-04] MEDS: THIAMINE HCL 100 MG TABLET (FP) PO SCH (21:56)
[2016-06-04] MEDS: diphenhydrAMINE HCL 50 MG CAPSULE PO PRN (21:58)
[2016-06-04] MEDS ORDERED: traZODone HCL 100 MG TABLET (FP) PO SCH (22:00)
[2016-06-05 06:40] VITALS: BP 159/74; PULSE 76; TEMP 97.5
[2016-06-05] MEDS: IBUPROFEN 400 MG TABLET (FP) PO PRN (09:46)
[2016-06-05] MEDS: PRENATAL VITAMINS W/ FOLIC ACID TABLET (FP) PO SCH (10:15)
[2016-06-05] MEDS: NICOTINE 21 MG/24 HOURS TOPICAL PATCH TD SCH (10:15)
[2016-06-05] MEDS: LIDOCAINE 5% TOPICAL PATCH TP SCH (10:15)
[2016-06-05] MEDS: cloNIDine HCL 0.1 MG TABLET PO SCH (10:15)
== END 2016-06-05 10:15 | disposition home or self-care (01) | DRG 772 ==
LOC: YASAS 12:38 → Y3W 12:40 → Y5N 05-28 18:30 → Y3W 05-28 18:41
PROVIDERS: ADMIT Psychiatry & Neurology Psychiatry; ATTEND Psychiatry & Neurology Psychiatry
PROC: HZ42ZZZ Group Counseling for Substance Abuse Treatment, Cognitive-Behavioral (ICD-10-PCS; principal; 2016-06-05)
DX: F11.23 Opioid dependence with withdrawal (principal); F10.230 Alcohol dependence with withdrawal, uncomplicated; F12.20 Cannabis dependence, uncomplicated; F17.210 Nicotine dependence, cigarettes, uncomplicated; F45.20 Hypochondriacal disorder, unspecified

== ENCOUNTER 2016-08-22 14:31 | Inpatient (IN) | payer OTHER ==
[2016-08-22 15:14] VITALS: BMI 27.4
--- NOTE | 2016-08-22 15:38 | HP ---
COWS - Scale Resting Pulse: 0= [place] 80 or Below Sweatin= Chills/Flushing Restless Observation: 3= Extraneous Movement Pupil Size: 2= Moderately Dilated Bone or Joint Aches: 4=Acute Joint/Muscle Pain Runny Nose/ Eye Tearin= Runny Nose/Eyes GI Upset > 30mins: 1= Stomach Cramp Tremor Observation: 2= Slight Tremor Visible Yawning Observation: 2= >3x During Session Anxiety or Irritability: 1=Feels Anxious/Irritable Goose Flesh Skin: 0=Smooth Skin COWS Score: 18 CIWA Score - CIWA Score Nausea/Vomitin-No Nausea/No Vomiting Muscle Tremors: 4-Moderate,w/Arms Extend Anxiety: 4-Mod. Anxious/Guarded Agitation: 4-Moderately Restless Paroxysmal Sweats: 1-Minimal Palms Moist Orientation: 0-Oriented Tacttile Disturbances: 3-Moderate Itch/Numb/Burn Auditory Disturbances: 0-None Visual Disturbances: 0-None Headache: 0-None Present CIWA-Ar Total Score: 16 Admission [facility] - HPI Chief Complaint: DETOX [place] FOR HEROIN AND ALCOHOL DEPENDENCE Allergies/Adverse Reactions: Allergies Allergy/AdvReac Type Severity Reaction Status Date / Time Fish Containing Products Allergy Severe Difficulty Verified 05/22/16 12:18 Breathing History of Present Illness: 26 Y/O H/M WITH A HX OF HEROIN,COCAINE, ALCOHOL AND MARIJUANA DEPENDENCE SEEKING DETOX [place]. Exam Limitations: No Limitations - Ebola screening Have you traveled outside of the country in the last 21 days: No Have you had contact with anyone from an Ebola affected area: No Have you been sick,other than usual withdrawal symptoms: No - Review of Systems Constitutional: Chills, Loss of Appetite, Night Sweats, Changes in sleep EENT: reports: Tearing, Nose Congestion Respiratory: reports: Shortness of Breath (ASTHMA HX), Wheezing Cardiac: reports: Lightheadedness GI: reports: Constipated, Diarrhea, Nausea, Poor Appetite, Poor Fluid Intake, Vomiting : reports: No Symptoms Reported Musculoskeletal: reports: Back Pain, Joint Pain, Muscle Pain Integumentary: reports: Bruising (BOTH ELBOWS) Neuro: reports: Headache, Tremors, Unsteady Gait, Dizziness Endocrine: reports: No Symptoms Reported Hematology: reports: No Symptoms Reported Psychiatric: reports: Orientated x3, Anxious, Depressed Other Systems: Reviewed and Negative Patient History - Patient Medical History Hx Anemia: No Hx Asthma: Yes (MDI) Hx Chronic Obstructive Pulmonary Disease (COPD): No Hx Cardiac Disorders: No Hx Hypertension: No Hx Hypercholesterolemia: No HX Cerebrovascular Accident: No Hx Seizures: No Hx Diabetes: No Hx Gastrointestinal Disorders: No Hx Genitourinary Disorders: No Hx Sexually Transmitted Disorders: No Hx Renal Disease (ESRD): No Hx Thyroid Disease: No Hx Human Immunodeficiency Virus (HIV): No (NEGATIVE HX) Hx Hepatitis C: No Hx Depression: No Hx Suicide Attempt: No (DENIES) Hx Bipolar Disorder: No Hx Schizophrenia: No - Patient Surgical History Past Surgical History: No Hx Neurologic Surgery: No Hx Cataract Extraction: No Hx Cardiac Surgery: No Hx Lung Surgery: No Hx Breast Surgery: No Hx Breast Biopsy: No Hx Abdominal Surgery: No Hx Appendectomy: No Hx Cholecystectomy: No Hx Genitourinary Surgery: No Hx Orthopedic Surgery: No Anesthesia Reaction: No - PPD History Previous Implant?: Yes Documented Results: Negative w/proof Implanted On Prior [facility] Admission?: Yes Date: 05/24/16 PPD to be Administered?: No - Reproductive History Patient is a Female of Child Bearing Age (11 -55 yrs old): No (MALE) - Smoking Cessation Smoking history: Current every day smoker Have you smoked in the past 12 months: Yes Aproximately how many cigarettes per day: 20 Hx Chewing Tobacco Use: No Initiated information on smoking cessation: Yes 'Breaking Loose' booklet given: 08/22/16 - Substance & Tx. History Hx Alcohol Use: Yes (WHISKY/BEER) Hx Substance Use: Yes Substance Use Type: Alcohol, Cocaine, Heroin Hx Substance Use Treatment: Yes ([facility]) - Substances Abused Alcohol Route: Oral Frequency: 3-6 times per week Amount used: 3-4 24 OZ BEER; 2-3 PTS WHISKY Age of first use: 16 Date of Last Use: 08/20/16 Heroin Route: Injection Frequency: Daily Amount used: 3 BAGS Age of first use: 20 Date of Last Use: 08/22/16 Cocaine Route: Injection Frequency: Daily Amount used: 2-3 BAGS Age of first use: 20 Date of Last Use: 08/22/16 Marijuana/Hashish Route: Smoking Frequency: Daily Amount used: 3 BLUNTS Age of first use: 14 Date of Last Use: 08/21/16 Family Disease History - Family Disease History Family Disease History: Respiratory: Brother (ASTHMA), Sister (ASTHMA) Admission Physical Exam [facility] - Vital Signs Vital Signs: Vital Signs - 24 hr 08/22/16 15:12 Temperature 97.6 F Pulse Rate 76 Respiratory 18 Rate Blood Pressure 140/76 - Physical General Appearance: Yes: Moderate Distress, Irritable, Anxious HEENTM: Yes: EOMI, Normocephalic, ALEXEY, Pharynx Normal Respiratory: Yes: Chest Non-Tender, Lungs Clear, Normal Breath Sounds, No Respiratory Distress Neck: Yes: Supple, Trachea in good position Breast: Yes: Breast Exam Deferred Cardiology: Yes: Regular Rhythm, Regular Rate, S1, S2 Abdominal: Yes: Normal Bowel Sounds, Non Tender, Soft Genitourinary: Yes: Other (N/C) Back: Yes: Within Normal Limits Musculoskeletal: Yes: full range of Motion, Gait Steady Neurological: Yes: timber spotter II-XII NML intact, Fully Oriented, Alert, Motor Strength 5/5 Integumentary: Yes: Dry, Warm, Track Chakraborty (BOTH ELBOWS) Lymphatic: Yes: Within Normal Limits - Diagnostic (1) Alcohol dependence with uncomplicated withdrawal Current Visit: Yes Status: Acute (2) Cannabis dependence Current Visit: Yes Status: Acute (3) Nicotine dependence Current Visit: Yes Status: Acute (4) Opioid dependence with withdrawal Current Visit: Yes Status: Acute (5) Asthma Current Visit: Yes Status: Chronic Qualifiers: Asthma severity: mild intermittent Asthma complication type: uncomplicated Qualified Code(s): J45.20 - Mild intermittent asthma, uncomplicated (6) Cocaine dependence, uncomplicated Current Visit: Yes Status: Acute Cleared for Admission [facility] - Detox or Rehab [facility] Level of Care: Medically Managed Detox Regimen/Protocol: Methadone/Valium (PT PREFERS VALIUM TO LIBRIUM) [facility] Breath Alcohol Content Breath Alcohol Content: 0 Urine Drug Screen - Results Drug Screen Negative: No Urine Drug Screen Results: THC-Marijuana, ROBBIN-Cocaine, OPI-Opiates, OXY- Oxycodone
[2016-08-22] MEDS ORDERED: MAGNESIUM HYDROX 2400MG/30ML ORAL SUSPENSION 30 ML CUP PO PRN (15:48)
[2016-08-22] MEDS ORDERED: MAG HYDROX/AL HYDROX/SIMETH 30 ML UNIT-DOSE CUP PO PRN (15:48)
[2016-08-22] MEDS ORDERED: ACETAMINOPHEN 325 MG TABLET (FP) PO PRN (15:48)
[2016-08-22] MEDS ORDERED: MAGNESIUM CITRATE 300 ML BOTTLE PO PRN (15:48)
[2016-08-22] MEDS ORDERED: MENTHOL/PHENOL 1 EACH UD MM PRN (15:48)
[2016-08-22] MEDS ORDERED: P-EPHED 60MG/TRIPROLIDI 2.5MG TABLET PO PRN (15:48)
[2016-08-22] MEDS ORDERED: guaiFENesin/D-METHORPHAN HB 10 ML UNIT-DOSE CUPS PO PRN (15:48)
[2016-08-22] MEDS ORDERED: IBUPROFEN 400 MG TABLET (FP) PO PRN (15:48)
[2016-08-22] MEDS ORDERED: LOPERAMIDE HCL 2 MG CAPSULE PO PRN (15:48)
[2016-08-22] MEDS ORDERED: diazePAM 5 MG TABLET PO ONE (17:45)
[2016-08-22] MEDS ORDERED: METHADONE HCL 10 MG TABLET (FOR DETOX USE ONLY) PO ONE ×2 (17:45→23:00)
[2016-08-22] MEDS: NICOTINE 21 MG/24 HOURS TOPICAL PATCH TD SCH (19:05)
[2016-08-22] MEDS: diazePAM 5 MG TABLET PO SCH (22:32)
[2016-08-22] MEDS: THIAMINE HCL 100 MG TABLET (FP) PO SCH (22:32)
[2016-08-23] MEDS: diazePAM 5 MG TABLET PO SCH ×3 (06:00→22:38)
[2016-08-23] MEDS ORDERED: METHADONE HCL 10 MG TABLET (FOR DETOX USE ONLY) PO SCH (10:00)
[2016-08-23 10:46] LABS: MCH 31.3 pg (25.7-33.7); MCHC 33.8 g/dl (32.0-35.9); MEAN CELL VOLUME 92.6 fl (80-96); MEAN PLT VOLUME 8.8 fl (7.5-11.1); PLATELET COUNT 207 K/MM3 (134-434); RDW 13.3 % (11.9-15.9); WHITE BLOOD COUNT 4.9 K/mm3 (4.0-10.0)
[2016-08-23] MEDS: PRENATAL VITAMINS W/ FOLIC ACID TABLET (FP) PO SCH (10:48)
[2016-08-23] MEDS: NICOTINE 21 MG/24 HOURS TOPICAL PATCH TD SCH (10:49)
[2016-08-23 11:02] LABS: ALBUMIN 3.2 g/dl (3.4-5.0); ALK PHOS 46 U/L (45-117); ANION GAP 6 (8-16); BILIRUBIN,TOTAL 0.2 mg/dL (0.2-1.0); CALCIUM 8.3 mg/dL (8.5-10.1); CO2 28 mmol/L (21-32); COCKROFT - GAULT 132.82; CREATININE 0.9 mg/dL (0.7-1.3); GLUCOSE,RANDOM 90 mg/dL (74-106); SGOT/AST 13 U/L (15-37); SGPT/ALT 17 U/L (12-78); TOT PROT 6.1 g/dl (6.4-8.2)
--- NOTE | 2016-08-23 11:12 | PN ---
S CIWA - CIWA Score Nausea/Vomitin-Mild Nausea/No Vomiting Muscle Tremors: 4-Moderate,w/Arms Extend Anxiety: 3 Agitation: 4-Moderately Restless Paroxysmal Sweats: 3 Orientation: 0-Oriented Tacttile Disturbances: 0-None Auditory Disturbances: 0-None Visual Disturbances: 0-None Headache: 0-None Present CIWA-Ar Total Score: 15 BHS COWS - Scale Resting Pulse: 0= [place] 80 or Below Sweatin=Flushed/Facial Moisture Restless Observation: 1= Difficult to Sit Still Pupil Size: 0= Normal to Room Light Bone or Joint Aches: 1= Mild Discomfort Runny Nose/ Eye Tearin= Runny Nose/Eyes GI Upset > 30mins: 2= Nausea/Diarrhea Tremor Observation of Outstretched Hands: 2= Slight Tremor Visible Yawning Observation: 1= 1-2x During Session Anxiety or Irritability: 2=Irritable/Anxious Goose Flesh Skin: 0=Smooth Skin COWS Score: 13 S Progress Note (SOAP) Subjective: Anxiety,tremors,sweating,interrupted sleep,restless,nausea Objective: 08/23/16 11:11 Vital Signs - 8 hr 08/23/16 08/23/16 08/23/16 03:30 06:42 10:19 Temperature 96.9 F L 96.1 F L Pulse Rate 58 L 56 L Respiratory 18 18 20 Rate Blood Pressure 125/79 127/88 Laboratory Tests 08/23/16 08/23/16 07:00 07:00 WBC 4.9 D RBC 4.45 Hgb 13.9 D Hct 41.2 MCV 92.6 MCHC 33.8 RDW 13.3 Plt Count 207 MPV 8.8 Sodium 143 Potassium 4.6 Chloride 109 H Carbon Dioxide 28 Anion Gap 6 L BUN 14 Creatinine 0.9 Creat Clearance w eGFR > 60 Random Glucose 90 Calcium 8.3 L Total Bilirubin 0.2 D AST 13 L D ALT 17 D Alkaline Phosphatase 46 D Total Protein 6.1 L Albumin 3.2 L D labs noted Assessment: 08/23/16 11:11 Withdrawal sx. Plan: Continue detox
--- NOTE | 2016-08-23 11:18 | CONSULT ---
[facility] Psychiatric Consult - Data Date of interview: 08/23/16 Admission source: [facility] Identifying data: This is 26 years old male with no psychiatgric hospitalization history [id number] with: Alcohol, Cannabis, Cocaine, Opioids anfd Nicotine Substance Abuse History: - Smoking Cessation. Smoking history: Current every day smoker. Have you smoked in the past 12 months: Yes. Aproximately how many cigarettes per day: 20. Hx Chewing Tobacco Use: No. Initiated information on smoking cessation: Yes. 'Breaking Loose' booklet given: 08/22/16. - Substance & Tx. History. Hx Alcohol Use: Yes (WHISKY/BEER). Hx Substance Use: Yes. Substance Use Type: Alcohol, Cocaine, Heroin. Hx Substance Use Treatment: Yes ( [facility]). - Substances Abused. Alcohol. Route: Oral. Frequency: 3-6 times per week. Amount used: 3-4 24 OZ BEER; 2-3 PTS WHISKY. Age of first use : 16. Date of Last Use: 08/20/16. Heroin. Route: Injection. Frequency: Daily. Amount used: 3 BAGS. Age of first use: 20. Date of Last Use: . Cocaine. Route: Injection. Frequency: Daily. Amount used: 2-3 BAGS. Age of first use: 20. Date of Last Use: 08/22/16. Marijuana/Hashish. Route : Smoking. Frequency: Daily. Amount used: 3 BLUNTS. Age of first use: 14. Date of Last Use: 08/21/16 Medical History: Denies Psychiatric History: Denies Physical/Sexual Abuse/Trauma History: Denies Additional Comment: Observation. [facility] Unit Care Protocol Mental Status Exam - Mental Status Exam Alert and Oriented to: Person Cognitive Function: Fair Patient Appearance: Unkempt Mood: Sad Affect: Flat Patient Behavior: Sedated Speech Pattern: Delayed Voice Loudness: Mildly Soft/Quiet Thought Process: Circumstantial Thought Disorder: Being Controlled Hallucinations: Denies Suicidal Ideation: Denies Homicidal Ideation: Denies Insight/Judgement: Fair Sleep: Difficulty falling asleep Appetite: Fair Muscle strength/Tone: Mild Hypotonicity Gait/Station: Shuffling Additional Comments: Observation. [facility] Unit Care Protocol Psychiatric Findings - Problem List ([place] 1, 2,3) (1) Alcohol dependence with uncomplicated withdrawal Current Visit: Yes Status: Acute (2) Cannabis dependence Current Visit: Yes Status: Acute (3) Cocaine dependence, uncomplicated Current Visit: Yes Status: Acute (4) Nicotine dependence Current Visit: Yes Status: Acute (5) Opioid dependence with withdrawal Current Visit: Yes Status: Acute (6) Drug-induced mood disorder Current Visit: Yes Status: Suspected - Initial Treatment Plan Initial Treatment Plan: Observation. [facility] Unit Care Protocol
--- NOTE | 2016-08-23 12:32 | EKG ---
Test Reason : Blood Pressure : / mmHG Vent. Rate : 073 BPM Atrial Rate : 073 BPM P-R Int : 114 ms QRS Dur : 088 ms QT Int : 400 ms P-R-T Axes : 024 033 030 degrees QTc Int : 440 ms NORMAL SINUS RHYTHM WITH SINUS ARRHYTHMIA NORMAL ECG WHEN COMPARED WITH ECG OF 22-MAY-2016 15:04, NO SIGNIFICANT CHANGE WAS FOUND Confirmed by MIRIAM ARROYO MD ([id number]) on 08/23/2016 12:32:19 PM Referred By: Confirmed By:MIRIAM ARROYO MD
[2016-08-23] MEDS: diazePAM 5 MG TABLET PO PRN (17:28)
[2016-08-23] MEDS: NICOTINE POLACRILEX 4 MG GUM BC PRN (17:29)
[2016-08-23] MEDS: THIAMINE HCL 100 MG TABLET (FP) PO SCH (22:37)
[2016-08-23] MEDS: diphenhydrAMINE HCL 50 MG CAPSULE PO PRN (22:38)
[2016-08-23 23:01] LABS: URINE APPEARANCE CLEAR; URINE BILIRUBIN NEGATIVE (NEGATIVE); URINE BLOOD NEGATIVE (NEGATIVE); URINE COLOR STRAW; URINE GLUCOSE (UA) NEGATIVE (NEGATIVE); URINE KETONE NEGATIVE (NEGATIVE); URINE LEUK ESTERASE NEGATIVE (NEGATIVE); URINE NITRITE NEGATIVE (NEGATIVE); URINE PROTEIN NEGATIVE (NEGATIVE); URINE UROBILINOGEN NEGATIVE E.U./dl (0.2-1.0)
[2016-08-24] MEDS: diazePAM 5 MG TABLET PO PRN ×3 (06:03→17:15)
[2016-08-24] MEDS: PRENATAL VITAMINS W/ FOLIC ACID TABLET (FP) PO SCH (10:28)
[2016-08-24] MEDS: NICOTINE 21 MG/24 HOURS TOPICAL PATCH TD SCH (10:29)
[2016-08-24] MEDS: diazePAM 5 MG TABLET PO SCH ×2 (10:29→22:42)
[2016-08-24] MEDS: METHADONE HCL 5 MG TABLET (FOR DETOX USE ONLY) PO SCH (10:29)
--- NOTE | 2016-08-24 11:31 | PN ---
[facility] CIWA - CIWA Score Nausea/Vomitin-No Nausea/No Vomiting Muscle Tremors: 4-Moderate,w/Arms Extend Anxiety: 4-Mod. Anxious/Guarded Agitation: 4-Moderately Restless Paroxysmal Sweats: 1-Minimal Palms Moist Orientation: 0-Oriented Tacttile Disturbances: 3-Moderate Itch/Numb/Burn Auditory Disturbances: 0-None Visual Disturbances: 0-None Headache: 0-None Present CIWA-Ar Total Score: 16 BHS COWS - Scale Resting Pulse: 0= [place] 80 or Below Sweatin= Chills/Flushing Restless Observation: 3= Extraneous Movement Pupil Size: 2= Moderately Dilated Bone or Joint Aches: 4=Acute Joint/Muscle Pain Runny Nose/ Eye Tearin= Nasal Congestion GI Upset > 30mins: 1= Stomach Cramp Tremor Observation of Outstretched Hands: 2= Slight Tremor Visible Yawning Observation: 2= >3x During Session Anxiety or Irritability: 2=Irritable/Anxious Goose Flesh Skin: 0=Smooth Skin COWS Score: 18 [facility] Progress Note (SOAP) Subjective: ANXIETY,SWEATS, FATIGUE. Objective: 08/24/16 11:29 Vital Signs Temperature 95.2 F L 08/24/16 10:05 Pulse Rate 63 08/24/16 10:05 Respiratory Rate 18 08/24/16 10:05 Blood Pressure 133/70 08/24/16 10:05 O2 Sat by Pulse Oximetry (%) Laboratory Last Values WBC 4.9 K/mm3 (4.0-10.0) D 08/23/16 07:00 RBC 4.45 M/mm3 (4.00-5.60) 08/23/16 07:00 Hgb 13.9 GM/dL (11.7-16.9) D 08/23/16 07:00 Hct 41.2 % (35.4-49) 08/23/16 07:00 MCV 92.6 fl (80-96) 08/23/16 07:00 MCHC 33.8 g/dl (32.0-35.9) 08/23/16 07:00 RDW 13.3 % (11.9-15.9) 08/23/16 07:00 Plt Count 207 K/MM3 (134-434) 08/23/16 07:00 MPV 8.8 fl (7.5-11.1) 08/23/16 07:00 Sodium 143 mmol/L (136-145) 08/23/16 07:00 Potassium 4.6 mmol/L (3.5-5.1) 08/23/16 07:00 Chloride 109 mmol/L (98-107) H 08/23/16 07:00 Carbon Dioxide 28 mmol/L (21-32) 08/23/16 07:00 Anion Gap 6 (8-16) L 08/23/16 07:00 BUN 14 mg/dL (7-18) 08/23/16 07:00 Creatinine 0.9 mg/dL (0.7-1.3) 08/23/16 07:00 Creat Clearance w eGFR > 60 (>60) 08/23/16 07:00 Random Glucose 90 mg/dL (74-106) 08/23/16 07:00 Calcium 8.3 mg/dL (8.5-10.1) L 08/23/16 07:00 Total Bilirubin 0.2 mg/dL (0.2-1.0) D 08/23/16 07:00 AST 13 U/L (15-37) L D 08/23/16 07:00 ALT 17 U/L (12-78) D 08/23/16 07:00 Alkaline Phosphatase 46 U/L (45-117) D 08/23/16 07:00 Total Protein 6.1 g/dl (6.4-8.2) L 08/23/16 07:00 Albumin 3.2 g/dl (3.4-5.0) L D 08/23/16 07:00 Urine Color Straw 08/23/16 16:00 Urine Appearance Clear 08/23/16 16:00 Urine pH 7.0 (5.0-8.0) 08/23/16 16:00 Ur Specific [place] 1.018 (1.001-1.035) 08/23/16 16:00 Urine Protein Negative (NEGATIVE) 08/23/16 16:00 Urine Glucose (UA) Negative (NEGATIVE) 08/23/16 16:00 Urine Ketones Negative (NEGATIVE) 08/23/16 16:00 Urine Blood Negative (NEGATIVE) 08/23/16 16:00 Urine Nitrite Negative (NEGATIVE) 08/23/16 16:00 Urine Bilirubin Negative (NEGATIVE) 08/23/16 16:00 Urine Urobilinogen Negative E.U./dl (0.2-1.0) 08/23/16 16:00 Ur Leukocyte Esterase Negative (NEGATIVE) 08/23/16 16:00 RPR Titer Nonreactive (NONREACTIVE) 08/23/16 07:00 Assessment: 08/24/16 11:31 WITHDRAWAL SX Plan: CONTINUE DETOX
[2016-08-24] MEDS: THIAMINE HCL 100 MG TABLET (FP) PO SCH (22:42)
[2016-08-24] MEDS: diphenhydrAMINE HCL 50 MG CAPSULE PO PRN (22:45)
[2016-08-24] MEDS: NICOTINE POLACRILEX 4 MG GUM BC PRN (22:45)
[2016-08-25] MEDS: diazePAM 5 MG TABLET PO PRN ×2 (05:22→12:34)
[2016-08-25] MEDS: NICOTINE 21 MG/24 HOURS TOPICAL PATCH TD SCH (10:11)
[2016-08-25] MEDS: METHADONE HCL 5 MG TABLET (FOR DETOX USE ONLY) PO SCH (10:11)
[2016-08-25] MEDS: PRENATAL VITAMINS W/ FOLIC ACID TABLET (FP) PO SCH (10:11)
[2016-08-25] MEDS: diazePAM 5 MG TABLET PO SCH ×2 (10:11→22:57)
[2016-08-25] MEDS ORDERED: HALOPERIDOL 1 MG TABLET (FP) PO PRN (12:10)
[2016-08-25] MEDS ORDERED: HALOPERIDOL 1 MG TABLET (FP) PO STA (12:11)
[2016-08-25] MEDS ORDERED: diphenhydrAMINE HCL 25 MG CAPSULE (FP) PO STA (12:12)
--- NOTE | 2016-08-25 12:17 | PN ---
Psychiatric Progress Note Vital Signs: Vital Signs Period Temp Pulse Resp BP Sys/[place] Pulse Ox Last 24 Hr 96.2 F-98.6 F 58-78 16-19 111-137/73-79 Date of Session: 08/25/16 Chief Complaint:: Agitation, anxiety HPI: As per nursing reports paytient is anxious, restless, agitated and intrussive Current Medications: Active Medications Generic Name Dose Route Start Last Admin Trade Name Freq PRN Reason Stop Dose Admin Acetaminophen 650 mg 08/22/16 15:48 Tylenol - PO Q4H PRN FEVER OR PAIN Al Hydroxide/Mg Hydroxide 30 ml 08/22/16 15:48 Mylanta Oral Suspension - PO Q6H PRN DYSPEPSIA Diazepam 10 mg 08/22/16 15:48 08/25/16 05:22 Valium - PO 08/25/16 15:48 10 mg Q4H PRN Administration WITHDRAWAL(CONT SUBST) Diazepam 5 mg 08/24/16 10:00 08/25/16 10:11 Valium - PO 08/25/16 22:01 5 mg BID BROOKS Administration Diazepam 5 mg 08/26/16 10:00 Valium - PO 08/26/16 10:01 DAILY BROOKS Diphenhydramine HCl 50 mg 08/22/16 15:48 08/24/16 22:45 Benadryl - PO 50 mg HSMR1 PRN Administration INSOMNIA Diphenhydramine HCl 50 mg 08/25/16 12:12 Benadryl - PO 08/25/16 12:13 NOW STA Eucalyptus/Menthol/Phenol/Sorbitol 1 each 08/22/16 15:48 Cepastat Lozenge - MM Q4H PRN SORE THROAT Guaifenesin 10 ml 08/22/16 15:48 Robitussin Dm - PO Q6H PRN COUGH Haloperidol 1 mg 08/25/16 12:10 Haldol - PO Q4HWA PRN AGITATION Haloperidol 2 mg 08/25/16 12:11 Haldol - PO 08/25/16 12:12 NOW STA Hydroxyzine Pamoate 25 mg 08/22/16 15:48 Vistaril - PO Q4H PRN AGITATION Ibuprofen 400 mg 08/22/16 15:48 Motrin - PO Q6H PRN SEVERE PAIN Loperamide HCl 4 mg 08/22/16 15:48 Imodium - PO Q6H PRN DIARRHEA Magnesium Citrate 300 ml 08/22/16 15:48 Citroma - PO Q48H PRN CONSTIPATION Magnesium Hydroxide 30 ml 08/22/16 15:48 Milk Of Magnesia - PO DAILY PRN CONSTIPATION Methadone HCl 10 mg 08/26/16 10:00 Dolophine - PO 08/26/16 10:01 DAILY BROOKS Methadone HCl 5 mg 08/27/16 06:00 Dolophine - PO 08/27/16 06:01 DAILY@0600 BROOKS Nicotine 21 mg 08/22/16 17:45 08/25/16 10:11 Nicoderm Patch - TD 21 mg DAILY BROOKS Administration Nicotine Polacrilex 4 mg 08/22/16 15:48 08/24/16 22:45 Nicorette Gum - BC 4 mg Q2H PRN Administration NICOTINE REPLACEMENT RX Multivit/Folic Acid/Iron 1 tab 08/23/16 10:00 08/25/16 10:11 Vitamins (Sjr) - PO 1 tab DAILY BROOKS Administration Pseudoephedrine/Triprolidine 1 combo 08/22/16 15:48 Actifed - PO TID PRN NASAL CONGESTION Thiamine HCl 100 mg 08/22/16 22:00 08/24/16 22:42 Vitamin B1 - PO 100 mg HS BROOKS Administration Medication(s) Change(s): Haldol 2mg po stat. Benadryl 50MG PO STAT. Haldol po prn q4 for agitation Mental Status Exam - Mental Status Exam Alert and Oriented to: Person Cognitive Function: Fair Patient Appearance: Unkempt Mood: Nervous, Anxious, Irritable Affect: Labile Patient Behavior: Restless, Uncooperative, Guarded, Agitated Speech Pattern: Excessive Voice Loudness: Mildly Loud Thought Process: Circumstantial Thought Disorder: Being Controlled Hallucinations: Denies Suicidal Ideation: Denies Homicidal Ideation: Denies Insight/Judgement: Fair Sleep: Difficulty falling asleep Appetite: Fair Muscle strength/Tone: Normal Gait/Station: Normal Additional Comments: Haldol 2mg po stat. Benadryl 50MG PO STAT. Haldol po prn q4 for agitation Psychiatric Treatment Plan - Problem List (1) Alcohol dependence with uncomplicated withdrawal Current Visit: Yes (2) Cannabis dependence Current Visit: Yes (3) Cocaine dependence, uncomplicated Current Visit: Yes (4) Nicotine dependence Current Visit: Yes (5) Opioid dependence with withdrawal Current Visit: Yes (6) Drug-induced mood disorder Current Visit: Yes (7) Anxiety disorder, unspecified Current Visit: Yes (8) Psychotic affective disorder Current Visit: Yes Initial treatment plan: Haldol 2mg po stat. Benadryl 50MG PO STAT. Haldol po prn q4 for agitation
--- NOTE | 2016-08-25 14:19 | PN ---
[facility] Progress Note (SOAP) Subjective: Anxiety, shakes and generalized weakness Objective: 08/25/16 14:19 Vital Signs - 8 hr 08/25/16 08/25/16 06:50 09:47 Temperature 96.4 F L 96.7 F L Pulse Rate 58 L 64 Respiratory 16 18 Rate Blood Pressure 129/79 111/77 Laboratory Last Values WBC 4.9 K/mm3 (4.0-10.0) D 08/23/16 07:00 RBC 4.45 M/mm3 (4.00-5.60) 08/23/16 07:00 Hgb 13.9 GM/dL (11.7-16.9) D 08/23/16 07:00 Hct 41.2 % (35.4-49) 08/23/16 07:00 MCV 92.6 fl (80-96) 08/23/16 07:00 MCHC 33.8 g/dl (32.0-35.9) 08/23/16 07:00 RDW 13.3 % (11.9-15.9) 08/23/16 07:00 Plt Count 207 K/MM3 (134-434) 08/23/16 07:00 MPV 8.8 fl (7.5-11.1) 08/23/16 07:00 Sodium 143 mmol/L (136-145) 08/23/16 07:00 Potassium 4.6 mmol/L (3.5-5.1) 08/23/16 07:00 Chloride 109 mmol/L (98-107) H 08/23/16 07:00 Carbon Dioxide 28 mmol/L (21-32) 08/23/16 07:00 Anion Gap 6 (8-16) L 08/23/16 07:00 BUN 14 mg/dL (7-18) 08/23/16 07:00 Creatinine 0.9 mg/dL (0.7-1.3) 08/23/16 07:00 Creat Clearance w eGFR > 60 (>60) 08/23/16 07:00 Random Glucose 90 mg/dL (74-106) 08/23/16 07:00 Calcium 8.3 mg/dL (8.5-10.1) L 08/23/16 07:00 Total Bilirubin 0.2 mg/dL (0.2-1.0) D 08/23/16 07:00 AST 13 U/L (15-37) L D 08/23/16 07:00 ALT 17 U/L (12-78) D 08/23/16 07:00 Alkaline Phosphatase 46 U/L (45-117) D 08/23/16 07:00 Total Protein 6.1 g/dl (6.4-8.2) L 08/23/16 07:00 Albumin 3.2 g/dl (3.4-5.0) L D 08/23/16 07:00 Urine Color Straw 08/23/16 16:00 Urine Appearance Clear 08/23/16 16:00 Urine pH 7.0 (5.0-8.0) 08/23/16 16:00 Ur Specific [place] 1.018 (1.001-1.035) 08/23/16 16:00 Urine Protein Negative (NEGATIVE) 08/23/16 16:00 Urine Glucose (UA) Negative (NEGATIVE) 08/23/16 16:00 Urine Ketones Negative (NEGATIVE) 08/23/16 16:00 Urine Blood Negative (NEGATIVE) 08/23/16 16:00 Urine Nitrite Negative (NEGATIVE) 08/23/16 16:00 Urine Bilirubin Negative (NEGATIVE) 08/23/16 16:00 Urine Urobilinogen Negative E.U./dl (0.2-1.0) 08/23/16 16:00 Ur Leukocyte Esterase Negative (NEGATIVE) 08/23/16 16:00 RPR Titer Nonreactive (NONREACTIVE) 08/23/16 07:00 labs noted Assessment: 08/25/16 14:19 withdrawal sx Plan: continue detox
[2016-08-25] MEDS: hydrOXYzine PAMOATE 25 MG CAPSULE (FP) PO PRN (15:04)
[2016-08-25] MEDS: NICOTINE POLACRILEX 4 MG GUM BC PRN ×2 (15:04→17:24)
[2016-08-25] MEDS: diphenhydrAMINE HCL 50 MG CAPSULE PO PRN (22:57)
[2016-08-25] MEDS: THIAMINE HCL 100 MG TABLET (FP) PO SCH (22:57)
[2016-08-26] MEDS ORDERED: diazePAM 5 MG TABLET PO SCH (10:00)
[2016-08-26] MEDS ORDERED: METHADONE HCL 10 MG TABLET (FOR DETOX USE ONLY) PO SCH (10:00)
[2016-08-26] MEDS: PRENATAL VITAMINS W/ FOLIC ACID TABLET (FP) PO SCH (10:47)
[2016-08-26] MEDS: NICOTINE 21 MG/24 HOURS TOPICAL PATCH TD SCH (10:48)
[2016-08-26] MEDS: NICOTINE POLACRILEX 4 MG GUM BC PRN ×3 (15:09→20:33)
[2016-08-26] MEDS: hydrOXYzine PAMOATE 25 MG CAPSULE (FP) PO PRN (15:09)
--- NOTE | 2016-08-26 16:35 | PN ---
BHS Progress Note (SOAP) Subjective: Sweating, back pain, anxious, interrupted sleep (requesting ambien) Objective: 08/26/16 16:34 Last Vital Signs Temp Pulse Resp BP Pulse Ox 98.0 F 76 18 155/83 08/26/16 14:03 08/26/16 14:03 08/26/16 14:03 08/26/16 14:03 Laboratory Tests 08/23/16 08/23/16 08/23/16 07:00 07:00 07:00 WBC 4.9 D RBC 4.45 Hgb 13.9 D Hct 41.2 MCV 92.6 MCHC 33.8 RDW 13.3 Plt Count 207 MPV 8.8 Sodium 143 Potassium 4.6 Chloride 109 H Carbon Dioxide 28 Anion Gap 6 L BUN 14 Creatinine 0.9 Creat Clearance w eGFR > 60 Random Glucose 90 Calcium 8.3 L Total Bilirubin 0.2 D AST 13 L D ALT 17 D Alkaline Phosphatase 46 D Total Protein 6.1 L Albumin 3.2 L D Urine Color Urine Appearance Urine pH Ur Specific [place] Urine Protein Urine Glucose (UA) Urine Ketones Urine Blood Urine Nitrite Urine Bilirubin Urine Urobilinogen Ur Leukocyte Esterase RPR Titer Nonreactive 08/23/16 16:00 WBC RBC Hgb Hct MCV MCHC RDW Plt Count MPV Sodium Potassium Chloride Carbon Dioxide Anion Gap BUN Creatinine Creat Clearance w eGFR Random Glucose Calcium Total Bilirubin AST ALT Alkaline Phosphatase Total Protein Albumin Urine Color Straw Urine Appearance Clear Urine pH 7.0 Ur Specific [place] 1.018 Urine Protein Negative Urine Glucose (UA) Negative Urine Ketones Negative Urine Blood Negative Urine Nitrite Negative Urine Bilirubin Negative Urine Urobilinogen Negative Ur Leukocyte Esterase Negative RPR Titer Labs noted Assessment: 08/26/16 16:34 Withdrawal symptoms Plan: Continue detox
[2016-08-26] MEDS ORDERED: ZOLPIDEM TARTRATE 5 MG TABLET PO ONE (22:00)
[2016-08-26] MEDS: THIAMINE HCL 100 MG TABLET (FP) PO SCH (22:58)
[2016-08-27] MEDS ORDERED: ALBUTEROL SO4 6.7 GM HFA INHALER IH ONE (00:12)
[2016-08-27] MEDS ORDERED: ALBUTEROL SO4 2.5/IPRATROPIUM 0.5 INH SOL 3 ML VIAL.NEB. NEB PRN (00:15)
[2016-08-27] MEDS: hydrOXYzine PAMOATE 25 MG CAPSULE (FP) PO PRN ×2 (03:56→08:51)
[2016-08-27] MEDS ORDERED: METHADONE HCL 5 MG TABLET (FOR DETOX USE ONLY) PO SCH (06:00)
[2016-08-27] MEDS: NICOTINE POLACRILEX 4 MG GUM BC PRN (08:49)
[2016-08-27 09:56] VITALS: BP 135/83; PULSE 70; TEMP 97.6
--- NOTE | 2016-08-28 13:28 | DS ---
[facility] Detox Discharge Summary Admission Date: 08/22/16 Discharge Date: 08/27/16 - History Present History: Alcohol Dependence, Cannabis Dependence, Cocaine Dependence, Opioid Dependence Pertinent Past History: Asthma - Physical Exam Results Vital Signs: Vital Signs Temperature 97.6 F 08/27/16 09:56 Pulse Rate 70 08/27/16 09:56 Respiratory Rate 18 08/27/16 09:56 Blood Pressure 135/83 08/27/16 09:56 O2 Sat by Pulse Oximetry (%) Pertinent Admission Physical Exam Findings: Withdrawal sx. Laboratory Tests 08/23/16 08/23/16 08/23/16 07:00 07:00 07:00 WBC 4.9 D RBC 4.45 Hgb 13.9 D Hct 41.2 MCV 92.6 MCHC 33.8 RDW 13.3 Plt Count 207 MPV 8.8 Sodium 143 Potassium 4.6 Chloride 109 H Carbon Dioxide 28 Anion Gap 6 L BUN 14 Creatinine 0.9 Creat Clearance w eGFR > 60 Random Glucose 90 Calcium 8.3 L Total Bilirubin 0.2 D AST 13 L D ALT 17 D Alkaline Phosphatase 46 D Total Protein 6.1 L Albumin 3.2 L D Urine Color Urine Appearance Urine pH Ur Specific [place] Urine Protein Urine Glucose (UA) Urine Ketones Urine Blood Urine Nitrite Urine Bilirubin Urine Urobilinogen Ur Leukocyte Esterase RPR Titer Nonreactive 08/23/16 16:00 WBC RBC Hgb Hct MCV MCHC RDW Plt Count MPV Sodium Potassium Chloride Carbon Dioxide Anion Gap BUN Creatinine Creat Clearance w eGFR Random Glucose Calcium Total Bilirubin AST ALT Alkaline Phosphatase Total Protein Albumin Urine Color Straw Urine Appearance Clear Urine pH 7.0 Ur Specific [place] 1.018 Urine Protein Negative Urine Glucose (UA) Negative Urine Ketones Negative Urine Blood Negative Urine Nitrite Negative Urine Bilirubin Negative Urine Urobilinogen Negative Ur Leukocyte Esterase Negative RPR Titer labs noted - Treatment Hospital Course: Detox Protocol Followed, Detoxed Safely, Responded well, Discharged Condition Good, Rehab Referral Accepted Patient has Accepted a Rehab Referral to: [facility] - Medication Discharge Medications: Ambulatory Orders Albuterol Sulfate Inhaler - [Ventolin HFA Inhaler -] 2 inh PO Q4H PRN 05/22/16 - Diagnosis (1) Alcohol dependence with uncomplicated withdrawal Status: Acute (2) Cannabis dependence Status: Acute (3) Cocaine dependence, uncomplicated Status: Acute (4) Nicotine dependence Status: Acute Qualifiers: Nicotine product type: cigarettes Substance use status: uncomplicated Qualified Code(s): F17.210 - Nicotine dependence, cigarettes, uncomplicated (5) Opioid dependence with withdrawal Status: Acute (6) Asthma Status: Chronic Qualifiers: Asthma severity: mild intermittent Asthma complication type: uncomplicated Qualified Code(s): J45.20 - Mild intermittent asthma, uncomplicated (7) Drug-induced mood disorder Status: Suspected - AMA Did Patient Leave Against Medical Advice: No
== END 2016-08-27 09:25 | disposition home or self-care (01) | DRG 773 ==
LOC: YASAS 14:31 → Y3N 17:17
PROVIDERS: ADMIT Internal Medicine; ATTEND Internal Medicine
PROC: HZ2ZZZZ Detoxification Services for Substance Abuse Treatment (ICD-10-PCS; principal; 2016-08-22)
DX: F11.23 Opioid dependence with withdrawal (principal); F10.230 Alcohol dependence with withdrawal, uncomplicated; F14.20 Cocaine dependence, uncomplicated; F12.20 Cannabis dependence, uncomplicated; F17.210 Nicotine dependence, cigarettes, uncomplicated; F19.24 Other psychoactive substance dependence with psychoactive substance-induced mood disorder; F41.9 Anxiety disorder, unspecified; F31.9 Bipolar disorder, unspecified; J45.909 Unspecified asthma, uncomplicated
CPT/HCPCS: 36415; 80053; 81003; 85027; 86593; 93005; 93010

== ENCOUNTER 2016-11-26 11:08 | Inpatient (IN) | payer OTHER ==
[2016-11-26 13:57] VITALS: BMI 26.9
--- NOTE | 2016-11-26 15:28 | HP ---
COWS - Scale Resting Pulse: 0= [place] 80 or Below Sweatin=Flushed/Facial Moisture Restless Observation: 1= Difficult to Sit Still Pupil Size: 0= Normal to Room Light Bone or Joint Aches: 2= Severe Diffuse Aches Runny Nose/ Eye Tearin= Nasal Congestion GI Upset > 30mins: 1= Stomach Cramp Tremor Observation: 2= Slight Tremor Visible Yawning Observation: 2= >3x During Session Anxiety or Irritability: 2=Irritable/Anxious Goose Flesh Skin: 3=Piloerection COWS Score: 16 CIWA Score - CIWA Score Nausea/Vomitin-No Nausea/No Vomiting Muscle Tremors: 4-Moderate,w/Arms Extend Anxiety: 4-Mod. Anxious/Guarded Agitation: 4-Moderately Restless Paroxysmal Sweats: 3 Orientation: 0-Oriented Tacttile Disturbances: 0-None Auditory Disturbances: 0-None Visual Disturbances: 0-None Headache: 1-Very Mild CIWA-Ar Total Score: 16 Admission ROS BHS - HPI Chief Complaint: I want to change my life. Allergies/Adverse Reactions: Allergies Allergy/AdvReac Type Severity Reaction Status Date / Time Fish Containing Products Allergy Severe Difficulty Verified 11/26/16 15:20 Breathing No Known Drug Allergies Allergy Verified 11/26/16 15:20 History of Present Illness: pt is a 26yr old male with a history of alcohol and heroin dependence seeking detox for treatment. Exam Limitations: No Limitations - Ebola screening Have you traveled outside of the country in the last 21 days: No Have you had contact with anyone from an Ebola affected area: No Have you been sick,other than usual withdrawal symptoms: No Do you have a fever: No - Review of Systems Constitutional: Chills, Diaphoresis, Loss of Appetite, Night Sweats EENT: reports: Tearing, Nose Congestion Respiratory: reports: Cough Cardiac: reports: No Symptoms Reported, Lightheadedness GI: reports: Poor Appetite, Poor Fluid Intake, Indigestion : reports: No Symptoms Reported Musculoskeletal: reports: Back Pain Integumentary: reports: Flushing, Sweating Neuro: reports: Headache, Tingling, Tremors Endocrine: reports: Excessive Sweating, Flushing, Intolerance to Cold, Intolerance to Heat Hematology: reports: No Symptoms Reported Psychiatric: reports: Judgement Intact, Mood/Affect Appropiate, Orientated x3, Agitated, Anxious Other Systems: Reviewed and Negative Patient History - Patient Medical History Hx Anemia: No Hx Asthma: Yes (MDI) Hx Chronic Obstructive Pulmonary Disease (COPD): No Hx Cancer: No Hx Cardiac Disorders: No Hx Congestive Heart Failure: No Hx Hypertension: No Hx Hypercholesterolemia: No HX Cerebrovascular Accident: No Hx Seizures: No Hx Dementia: No Hx Diabetes: No Hx Gastrointestinal Disorders: No Hx Liver Disease: No Hx Genitourinary Disorders: No Hx Sexually Transmitted Disorders: No Hx Renal Disease (ESRD): No Hx Thyroid Disease: No Hx Human Immunodeficiency Virus (HIV): No (NEGATIVE HX) Hx Hepatitis C: No (negative) Hx Depression: No Hx Suicide Attempt: No (DENIES) Hx Bipolar Disorder: No Hx Schizophrenia: No Other Medical History: anxiety - Patient Surgical History Past Surgical History: No Hx Neurologic Surgery: No Hx Cataract Extraction: No Hx Cardiac Surgery: No Hx Lung Surgery: No Hx Breast Surgery: No Hx Breast Biopsy: No Hx Abdominal Surgery: No Hx Appendectomy: No Hx Cholecystectomy: No Hx Genitourinary Surgery: No Hx Section: No Hx Orthopedic Surgery: No Anesthesia Reaction: No - PPD History Previous Implant?: Yes Documented Results: Negative w/proof Date: 05/24/16 Results: 0 mm PPD to be Administered?: No - Reproductive History Patient is a Female of Child Bearing Age (11 -55 yrs old): No - Smoking Cessation Smoking history: Current every day smoker Have you smoked in the past 12 months: Yes Aproximately how many cigarettes per day: 20 Hx Chewing Tobacco Use: No Initiated information on smoking cessation: Yes 'Breaking Loose' booklet given: 11/26/16 - Substance & Tx. History Hx Alcohol Use: Yes Hx Substance Use: Yes Substance Use Type: Alcohol, Cocaine, Heroin, Marijuana Hx Substance Use Treatment: Yes ([facility] last detox a month ago) - Substances Abused Heroin Route: Injection Frequency: Daily Amount used: 7-8 bags Age of first use: 21 Date of Last Use: 11/26/16 Cocaine Route: Injection Frequency: Daily Amount used: 7-8 bags Age of first use: 21 Date of Last Use: 11/26/16 Marijuana/Hashish Route: Smoking Frequency: Daily Amount used: 4 blunts Age of first use: 15 Date of Last Use: 11/24/16 Alcohol Route: Oral Frequency: Daily Amount used: 2-3 beers 12oz beers Age of first use: 15 Date of Last Use: 11/25/16 Family Disease History - Family Disease History Family Disease History: Respiratory: Brother (ASTHMA), Sister (ASTHMA) Admission Physical Exam [facility] - Vital Signs Vital Signs: Vital Signs - 24 hr 11/26/16 13:54 Temperature 97 F L Pulse Rate 60 Respiratory 20 Rate Blood Pressure 135/73 - Physical General Appearance: Yes: Appropriately Dressed, Moderate Distress, Tremorous, Irritable, Sweating, Anxious HEENTM: Yes: Normal Voice, Rhinorrhea Respiratory: Yes: Lungs Clear, Normal Breath Sounds, No Respiratory Distress Neck: Yes: No masses,lesions,Nodules Breast: Yes: Within Normal Limits Cardiology: Yes: Regular Rhythm, Regular Rate, S1, S2 Abdominal: Yes: Normal Bowel Sounds, Non Tender, Soft Genitourinary: Yes: Within Normal Limits Back: Yes: Normal Inspection Musculoskeletal: Yes: full range of Motion, Back pain Extremities: Yes: Normal Capillary Refill, Normal Inspection, Tremors Neurological: Yes: Fully Oriented, Alert, Normal Response Integumentary: Yes: Normal Color, Diaphoresis, Track Chakraborty Lymphatic: Yes: Within Normal Limits - Diagnostic (1) Alcohol dependence with uncomplicated withdrawal Current Visit: Yes Status: Chronic (2) Asthma Current Visit: Yes Status: Chronic Qualifiers: Asthma severity: mild intermittent Asthma complication type: uncomplicated Qualified Code(s): J45.20 - Mild intermittent asthma, uncomplicated (3) Cannabis dependence Current Visit: Yes Status: Chronic (4) Cocaine dependence, uncomplicated Current Visit: Yes Status: Chronic (5) Nicotine dependence Current Visit: Yes Status: Chronic Qualifiers: Nicotine product type: cigarettes Substance use status: uncomplicated Qualified Code(s): F17.210 - Nicotine dependence, cigarettes, uncomplicated (6) Opioid dependence with withdrawal Current Visit: Yes Status: Chronic Cleared for Admission [facility] - Detox or Rehab [facility] Level of Care: Medically Managed Detox Regimen/Protocol: Methadone/Librium [facility] Breath Alcohol Content Breath Alcohol Content: 0 Urine Drug Screen - Results Drug Screen Negative: No Urine Drug Screen Results: THC-Marijuana, ROBBIN-Cocaine, OPI-Opiates
[2016-11-26] MEDS ORDERED: NICOTINE POLACRILEX 4 MG GUM BUC PRN (15:36)
[2016-11-26] MEDS ORDERED: MAGNESIUM CITRATE 300 ML BOTTLE PO PRN (15:36)
[2016-11-26] MEDS ORDERED: MAG HYDROX/AL HYDROX/SIMETH 30 ML UNIT-DOSE CUP PO PRN (15:36)
[2016-11-26] MEDS ORDERED: P-EPHED 60MG/TRIPROLIDI 2.5MG TABLET PO PRN (15:36)
[2016-11-26] MEDS ORDERED: MAGNESIUM HYDROX 2400MG/30ML ORAL SUSPENSION 30 ML CUP PO PRN (15:36)
[2016-11-26] MEDS ORDERED: LOPERAMIDE HCL 2 MG CAPSULE PO PRN (15:36)
[2016-11-26] MEDS ORDERED: ACETAMINOPHEN 325 MG TABLET (FP) PO PRN (15:36)
[2016-11-26] MEDS ORDERED: MENTHOL/PHENOL 1 EACH UD MM PRN (15:36)
[2016-11-26] MEDS ORDERED: guaiFENesin/D-METHORPHAN HB 10 ML UNIT-DOSE CUPS PO PRN (15:36)
[2016-11-26] MEDS ORDERED: ALBUTEROL SO4 6.7 GM HFA INHALER IH PRN (15:38)
[2016-11-26] MEDS ORDERED: chlordiazePOXIDE HCL 25 MG CAPSULE PO ONE (15:47)
[2016-11-26] MEDS ORDERED: METHADONE HCL 10 MG TABLET (FOR DETOX USE ONLY) PO ONE ×2 (15:48→23:00)
[2016-11-26] MEDS: chlordiazePOXIDE HCL 25 MG CAPSULE PO SCH ×2 (17:11→22:14)
[2016-11-26] MEDS: THIAMINE HCL 100 MG TABLET (FP) PO SCH (22:14)
[2016-11-26] MEDS: diphenhydrAMINE HCL 50 MG CAPSULE PO PRN (22:15)
[2016-11-26 23:21] LABS: URINE APPEARANCE CLEAR; URINE BILIRUBIN NEGATIVE (NEGATIVE); URINE BLOOD NEGATIVE (NEGATIVE); URINE COLOR YELLOW; URINE GLUCOSE (UA) NEGATIVE (NEGATIVE); URINE KETONE NEGATIVE (NEGATIVE); URINE LEUK ESTERASE NEGATIVE (NEGATIVE); URINE NITRITE NEGATIVE (NEGATIVE); URINE PROTEIN NEGATIVE (NEGATIVE); URINE UROBILINOGEN NEGATIVE mg/dL (0.2-1.0)
[2016-11-27] MEDS: chlordiazePOXIDE HCL 25 MG CAPSULE PO SCH ×4 (05:52→22:49)
[2016-11-27] MEDS ORDERED: CYCLOBENZAPRINE HCL 10 MG TABLET (FP) PO ONE (09:50)
[2016-11-27] MEDS ORDERED: METHADONE HCL 10 MG TABLET (FOR DETOX USE ONLY) PO SCH (10:00)
[2016-11-27 10:36] LABS: MCH 30.4 pg (25.7-33.7); MCHC 34.1 g/dl (32.0-35.9); MEAN CELL VOLUME 89.2 fl (80-96); MEAN PLT VOLUME 8.6 fl (7.5-11.1); PLATELET COUNT 289 K/MM3 (134-434); RDW 12.9 % (11.9-15.9); WHITE BLOOD COUNT 4.6 K/mm3 (4.0-10.0)
[2016-11-27] MEDS: cloNIDine HCL 0.1 MG TABLET PO SCH ×2 (10:45→22:48)
[2016-11-27] MEDS: PRENATAL VITAMINS W/ FOLIC ACID TABLET (FP) PO SCH (10:45)
[2016-11-27] MEDS: NICOTINE 21 MG/24 HOURS TOPICAL PATCH TD SCH (10:46)
[2016-11-27 10:47] LABS: ALBUMIN 3.2 g/dl (3.4-5.0); ANION GAP 5 (8-16); CO2 33 mmol/L (21-32); GLUCOSE,RANDOM 82 mg/dL (74-106); SGOT/AST 51 U/L (15-37); SGPT/ALT 144 U/L (12-78)
[2016-11-27 10:49] LABS: ALK PHOS 63 U/L (45-117); BILIRUBIN,TOTAL 0.5 mg/dL (0.2-1.0); CALCIUM 8.8 mg/dL (8.5-10.1); TOT PROT 6.3 g/dl (6.4-8.2)
--- NOTE | 2016-11-27 10:53 | PN ---
[facility] CIWA - CIWA Score Nausea/Vomitin Muscle Tremors: 3 Anxiety: 3 Agitation: 3 Paroxysmal Sweats: 1-Minimal Palms Moist Orientation: 0-Oriented Tacttile Disturbances: 1-Very Mild Itch/Numbness Auditory Disturbances: 1-Very Mild Visual Disturbances: 1-Very Mild Sensitivity Headache: 2-Mild CIWA-Ar Total Score: 18 [facility] COWS - Scale Resting Pulse: 0= [place] 80 or Below Sweatin= Chills/Flushing Restless Observation: 3= Extraneous Movement Pupil Size: 1= Pupils >than Normal Bone or Joint Aches: 2= Severe Diffuse Aches Runny Nose/ Eye Tearin= Runny Nose/Eyes GI Upset > 30mins: 3= Vomiting/Diarrhea Tremor Observation of Outstretched Hands: 2= Slight Tremor Visible Yawning Observation: 1= 1-2x During Session Anxiety or Irritability: 2=Irritable/Anxious Goose Flesh Skin: 0=Smooth Skin COWS Score: 17 [facility] Progress Note (SOAP) Subjective: ALERT,IRRITABLE,ANXIOUS,INTERRUPTED SLEEP,TREMOR,PAIN IN THE BODY AND BACK Objective: 11/27/16 10:50 Vital Signs Temperature 97.3 F L 11/27/16 10:34 Pulse Rate 61 11/27/16 10:34 Respiratory Rate 189 H 11/27/16 10:34 Blood Pressure 127/75 11/27/16 10:34 O2 Sat by Pulse Oximetry (%) EKG SINUS BRADYCARDIA 53/MIN,INVERTE T IN 3,V2 NO CHEST PAIN,NO SOB,NO DIZZINESS Laboratory Last Values WBC 4.6 K/mm3 (4.0-10.0) 11/27/16 06:30 RBC 4.63 M/mm3 (4.00-5.60) 11/27/16 06:30 Hgb 14.1 GM/dL (11.7-16.9) 11/27/16 06:30 Hct 41.3 % (35.4-49) 11/27/16 06:30 MCV 89.2 fl (80-96) 11/27/16 06:30 MCH 30.4 pg (25.7-33.7) 11/27/16 06:30 MCHC 34.1 g/dl (32.0-35.9) 11/27/16 06:30 RDW 12.9 % (11.9-15.9) 11/27/16 06:30 Plt Count 289 K/MM3 (134-434) D 11/27/16 06:30 MPV 8.6 fl (7.5-11.1) 11/27/16 06:30 Urine Color Yellow 11/26/16 23:00 Urine Appearance Clear 11/26/16 23:00 Urine pH 5.0 (5.0-8.0) D 11/26/16 23:00 Ur Specific [place] 1.025 (1.005-1.025) 11/26/16 23:00 Urine Protein Negative (NEGATIVE) 11/26/16 23:00 Urine Glucose (UA) Negative (NEGATIVE) 11/26/16 23:00 Urine Ketones Negative (NEGATIVE) 11/26/16 23:00 Urine Blood Negative (NEGATIVE) 11/26/16 23:00 Urine Nitrite Negative (NEGATIVE) 11/26/16 23:00 Urine Bilirubin Negative (NEGATIVE) 11/26/16 23:00 Urine Urobilinogen Negative mg/dL (0.2-1.0) 11/26/16 23:00 Ur Leukocyte Esterase Negative (NEGATIVE) 11/26/16 23:00 LABS PENDING Assessment: 11/27/16 10:52 WITHDRAWAL SYMPTOM Plan: CONTINUE DETOX
[2016-11-27] MEDS: CYCLOBENZAPRINE HCL 10 MG TABLET (FP) PO PRN ×2 (11:00→19:58)
[2016-11-27] MEDS: hydrOXYzine PAMOATE 50 MG CAPSULE (FP) PO PRN ×2 (13:01→17:38)
[2016-11-27] MEDS: chlordiazePOXIDE HCL 25 MG CAPSULE PO PRN (13:01)
[2016-11-27] MEDS: IBUPROFEN 400 MG TABLET (FP) PO PRN (13:02)
--- NOTE | 2016-11-27 15:57 | CONSULT ---
[facility] Psychiatric Consult - Data Date of interview: 11/27/16 Admission source: [facility] Identifying data: Readmission to [facility] for this 26 y/o male seeking detox treatment on for heroin,alcohol,marijuana,cocaine and xanax dependence.Patient is single without children,homeless,unemployed and supported on Welfare. Substance Abuse History: Pattern of substance abuse discussed in this interview.Patient confirmed data listed below as it appears in the [facility] report : - Smoking Cessation. Smoking history: Current every day smoker. Have you smoked in the past 12 months: Yes. Aproximately how many cigarettes per day: 20. Hx Chewing Tobacco Use: No. Initiated information on smoking cessation: Yes. 'Breaking Loose' booklet given: 11/26/16. - Substance & Tx. History. Hx Alcohol Use: Yes. Hx Substance Use: Yes. Substance Use Type: Alcohol, Cocaine , Heroin, Marijuana. Hx Substance Use Treatment: Yes ([facility] last detox a month ago). - Substances Abused. Heroin. Route: Injection. Frequency: Daily. Amount used: 7-8 bags. Age of first use: 21. Date of Last Use: . Cocaine. Route: Injection. Frequency: Daily. Amount used: 7-8 bags. Age of first use: 21. Date of Last Use: 11/26/16. Marijuana/Hashish. Route : Smoking. Frequency: Daily. Amount used: 4 blunts. Age of first use: 15. Date of Last Use: 11/24/16. Alcohol. Route: Oral. Frequency: Daily. Amount used: 2-3 beers 12oz beers. Age of first use: 15. Date of Last Use: . Appreciated. Medical History: Bronchial asthma. Psychiatric History: Patient denies. Physical/Sexual Abuse/Trauma History: Patient denies. Mental Status Exam - Mental Status Exam Alert and Oriented to: Time, Place, Person Cognitive Function: Good Patient Appearance: Well Groomed Mood: Withdrawn, Apprehensive Affect: Normal Range Patient Behavior: Fatigued, Cooperative Speech Pattern: Clear Voice Loudness: Normal Thought Process: Goal Oriented Thought Disorder: Not Present Hallucinations: Denies Suicidal Ideation: Denies Homicidal Ideation: Denies Insight/Judgement: Poor Sleep: Poorly, Difficulty falling asleep Appetite: Good Muscle strength/Tone: Normal Gait/Station: Normal Psychiatric Findings - Problem List ([place] 1, 2,3) (1) Alcohol dependence with uncomplicated withdrawal Current Visit: Yes Status: Acute (2) Cannabis dependence Current Visit: Yes Status: Acute (3) Cocaine dependence, uncomplicated Current Visit: Yes Status: Acute (4) Opioid dependence with withdrawal Current Visit: Yes Status: Acute (5) Nicotine dependence Current Visit: Yes Status: Acute Qualifiers: Nicotine product type: cigarettes Substance use status: uncomplicated Qualified Code(s): F17.210 - Nicotine dependence, cigarettes, uncomplicated (6) Drug-induced mood disorder Current Visit: Yes Status: Chronic (7) Asthma Current Visit: Yes Status: Chronic Qualifiers: Asthma severity: mild intermittent Asthma complication type: uncomplicated Qualified Code(s): J45.20 - Mild intermittent asthma, uncomplicated (8) Insomnia Current Visit: Yes Status: Acute - Initial Treatment Plan Initial Treatment Plan: Psychoeducation.Detoxification.Ambien 10 mg po hs.Patient made aware of risk of parasomnias.He agrees with his careplan.Observation.
[2016-11-27] MEDS ORDERED: ZOLPIDEM TARTRATE 10 MG TABLET (PARK CARE ONLY) PO PRN (22:00)
[2016-11-27] MEDS: THIAMINE HCL 100 MG TABLET (FP) PO SCH (22:48)
[2016-11-27] MEDS: diphenhydrAMINE HCL 50 MG CAPSULE PO PRN (22:49)
[2016-11-28] MEDS: chlordiazePOXIDE HCL 25 MG CAPSULE PO SCH ×2 (05:36→11:01)
[2016-11-28] MEDS: METHADONE HCL 5 MG TABLET (FOR DETOX USE ONLY) PO SCH (11:00)
[2016-11-28] MEDS: PRENATAL VITAMINS W/ FOLIC ACID TABLET (FP) PO SCH (11:00)
[2016-11-28] MEDS: cloNIDine HCL 0.1 MG TABLET PO SCH ×2 (11:01→22:09)
[2016-11-28] MEDS: NICOTINE 21 MG/24 HOURS TOPICAL PATCH TD SCH (11:01)
--- NOTE | 2016-11-28 12:14 | PN ---
S CIWA - CIWA Score Nausea/Vomitin Muscle Tremors: 3 Anxiety: 3 Agitation: 2 Paroxysmal Sweats: 1-Minimal Palms Moist Orientation: 0-Oriented Tacttile Disturbances: 1-Very Mild Itch/Numbness Auditory Disturbances: 1-Very Mild Visual Disturbances: 1-Very Mild Sensitivity Headache: 2-Mild CIWA-Ar Total Score: 17 [facility] COWS - Scale Resting Pulse: 0= [place] 80 or Below Sweatin= Chills/Flushing Restless Observation: 3= Extraneous Movement Pupil Size: 1= Pupils >than Normal Bone or Joint Aches: 2= Severe Diffuse Aches Runny Nose/ Eye Tearin= Runny Nose/Eyes GI Upset > 30mins: 2= Nausea/Diarrhea Tremor Observation of Outstretched Hands: 2= Slight Tremor Visible Yawning Observation: 1= 1-2x During Session Anxiety or Irritability: 2=Irritable/Anxious Goose Flesh Skin: 0=Smooth Skin COWS Score: 16 S Progress Note (SOAP) Subjective: ALERT,IRRITABLE,ANXIOUS,INTERRUPTED SLEEP,TREMOR Objective: 11/28/16 12:13 Vital Signs Temperature 97.9 F 11/28/16 10:05 Pulse Rate 69 11/28/16 10:05 Respiratory Rate 18 11/28/16 10:05 Blood Pressure 111/50 11/28/16 10:05 O2 Sat by Pulse Oximetry (%) Laboratory Last Values WBC 4.6 K/mm3 (4.0-10.0) 11/27/16 06:30 RBC 4.63 M/mm3 (4.00-5.60) 11/27/16 06:30 Hgb 14.1 GM/dL (11.7-16.9) 11/27/16 06:30 Hct 41.3 % (35.4-49) 11/27/16 06:30 MCV 89.2 fl (80-96) 11/27/16 06:30 MCH 30.4 pg (25.7-33.7) 11/27/16 06:30 MCHC 34.1 g/dl (32.0-35.9) 11/27/16 06:30 RDW 12.9 % (11.9-15.9) 11/27/16 06:30 Plt Count 289 K/MM3 (134-434) D 11/27/16 06:30 MPV 8.6 fl (7.5-11.1) 11/27/16 06:30 Sodium 143 mmol/L (136-145) 11/27/16 06:30 Potassium 4.8 mmol/L (3.5-5.1) 11/27/16 06:30 Chloride 105 mmol/L (98-107) 11/27/16 06:30 Carbon Dioxide 33 mmol/L (21-32) H 11/27/16 06:30 Anion Gap 5 (8-16) L 11/27/16 06:30 BUN 14 mg/dL (7-18) 11/27/16 06:30 Creatinine 1.0 mg/dL (0.7-1.3) 11/27/16 06:30 Creat Clearance w eGFR > 60 (>60) 11/27/16 06:30 Random Glucose 82 mg/dL (74-106) 11/27/16 06:30 Calcium 8.8 mg/dL (8.5-10.1) 11/27/16 06:30 Total Bilirubin 0.5 mg/dL (0.2-1.0) D 11/27/16 06:30 AST 51 U/L (15-37) H D 11/27/16 06:30 ALT 144 U/L (12-78) H D 11/27/16 06:30 Alkaline Phosphatase 63 U/L (45-117) D 11/27/16 06:30 Total Protein 6.3 g/dl (6.4-8.2) L 11/27/16 06:30 Albumin 3.2 g/dl (3.4-5.0) L 11/27/16 06:30 Urine Color Yellow 11/26/16 23:00 Urine Appearance Clear 11/26/16 23:00 Urine pH 5.0 (5.0-8.0) D 11/26/16 23:00 Ur Specific [place] 1.025 (1.005-1.025) 11/26/16 23:00 Urine Protein Negative (NEGATIVE) 11/26/16 23:00 Urine Glucose (UA) Negative (NEGATIVE) 11/26/16 23:00 Urine Ketones Negative (NEGATIVE) 11/26/16 23:00 Urine Blood Negative (NEGATIVE) 11/26/16 23:00 Urine Nitrite Negative (NEGATIVE) 11/26/16 23:00 Urine Bilirubin Negative (NEGATIVE) 11/26/16 23:00 Urine Urobilinogen Negative mg/dL (0.2-1.0) 11/26/16 23:00 Ur Leukocyte Esterase Negative (NEGATIVE) 11/26/16 23:00 RPR Titer Nonreactive (NONREACTIVE) 11/27/16 06:30 Assessment: 11/28/16 12:14 WITHDRAWAL SYMPTOM Plan: CONTINUE DETOX,D/C TYLENOL
--- NOTE | 2016-11-28 12:30 | EKG ---
Test Reason : Blood Pressure : / mmHG Vent. Rate : 053 BPM Atrial Rate : 053 BPM P-R Int : 098 ms QRS Dur : 098 ms QT Int : 448 ms P-R-T Axes : 023 034 022 degrees QTc Int : 420 ms SINUS BRADYCARDIA WITH SHORT MI RSR' OR QR PATTERN IN V1 SUGGESTS RIGHT VENTRICULAR CONDUCTION DELAY BORDERLINE ECG WHEN COMPARED WITH ECG OF 22-AUG-2016 18:17, NO SIGNIFICANT CHANGE WAS FOUND Confirmed by ELLIOT EDGAR MD ([id number]) on 11/28/2016 12:30:42 PM Referred By: Confirmed By:ELLIOT EDGAR MD
[2016-11-28] MEDS: chlordiazePOXIDE HCL 25 MG CAPSULE PO PRN (14:44)
[2016-11-28] MEDS: hydrOXYzine PAMOATE 50 MG CAPSULE (FP) PO PRN (14:44)
[2016-11-28] MEDS: IBUPROFEN 400 MG TABLET (FP) PO PRN (14:45)
[2016-11-28] MEDS: chlordiazePOXIDE 5 MG CAPSULE PO SCH ×2 (17:56→22:09)
[2016-11-28] MEDS: THIAMINE HCL 100 MG TABLET (FP) PO SCH (22:09)
[2016-11-28] MEDS: CYCLOBENZAPRINE HCL 10 MG TABLET (FP) PO PRN (22:09)
[2016-11-29] MEDS: chlordiazePOXIDE 5 MG CAPSULE PO SCH ×2 (05:48→10:59)
[2016-11-29] MEDS: CYCLOBENZAPRINE HCL 10 MG TABLET (FP) PO PRN ×2 (05:49→22:25)
[2016-11-29] MEDS: cloNIDine HCL 0.1 MG TABLET PO SCH ×2 (10:59→22:25)
[2016-11-29] MEDS: METHADONE HCL 5 MG TABLET (FOR DETOX USE ONLY) PO SCH (10:59)
[2016-11-29] MEDS: PRENATAL VITAMINS W/ FOLIC ACID TABLET (FP) PO SCH (10:59)
[2016-11-29] MEDS: NICOTINE 21 MG/24 HOURS TOPICAL PATCH TD SCH (10:59)
--- NOTE | 2016-11-29 11:45 | PN ---
S Progress Note (SOAP) Subjective: ALERT,IRRITABLE,ANXIOUS,INTERRUPTED SLEEP,PAIN IN THE BODY AND BACK Objective: 11/29/16 11:43 Vital Signs Temperature 96.3 F L 11/29/16 10:00 Pulse Rate 70 11/29/16 10:00 Respiratory Rate 18 11/29/16 10:00 Blood Pressure 128/70 11/29/16 10:00 O2 Sat by Pulse Oximetry (%) Assessment: 11/29/16 11:44 WITHDRAWAL SYMPTOM Plan: CONTINUE DETOX,PSYCHIATRIC REEVALUATION
[2016-11-29] MEDS: chlordiazePOXIDE HCL 10 MG CAPSULE PO SCH ×2 (17:13→22:25)
[2016-11-29] MEDS: hydrOXYzine PAMOATE 50 MG CAPSULE (FP) PO PRN (17:13)
[2016-11-29] MEDS: ZOLPIDEM TARTRATE 10 MG TABLET (PARK CARE ONLY) PO PRN (22:25)
[2016-11-29] MEDS: THIAMINE HCL 100 MG TABLET (FP) PO SCH (22:25)
[2016-11-30] MEDS: chlordiazePOXIDE HCL 10 MG CAPSULE PO SCH ×2 (05:32→10:53)
[2016-11-30] MEDS: hydrOXYzine PAMOATE 50 MG CAPSULE (FP) PO PRN ×2 (05:33→18:22)
[2016-11-30] MEDS ORDERED: METHADONE HCL 10 MG TABLET (FOR DETOX USE ONLY) PO SCH (10:00)
[2016-11-30] MEDS: cloNIDine HCL 0.1 MG TABLET PO SCH ×2 (10:53→22:15)
[2016-11-30] MEDS: PRENATAL VITAMINS W/ FOLIC ACID TABLET (FP) PO SCH (10:53)
[2016-11-30] MEDS: NICOTINE 21 MG/24 HOURS TOPICAL PATCH TD SCH (10:54)
--- NOTE | 2016-11-30 11:46 | PN ---
S Progress Note (SOAP) Subjective: ALERT,IRRITABLE,ANXIOUS,INTERRUPTED SLEEP Objective: 11/30/16 11:44 Vital Signs Temperature 97.7 F 11/30/16 10:00 Pulse Rate 88 11/30/16 10:00 Respiratory Rate 18 11/30/16 10:00 Blood Pressure 114/65 11/30/16 10:00 O2 Sat by Pulse Oximetry (%) Assessment: 11/30/16 11:45 WITHDRAWAL SYMPTOM Plan: CONTINUE DETOX,
[2016-11-30] MEDS: IBUPROFEN 400 MG TABLET (FP) PO PRN (18:22)
[2016-11-30] MEDS: THIAMINE HCL 100 MG TABLET (FP) PO SCH (22:15)
[2016-11-30] MEDS: CYCLOBENZAPRINE HCL 10 MG TABLET (FP) PO PRN (22:15)
[2016-11-30] MEDS: ZOLPIDEM TARTRATE 10 MG TABLET (PARK CARE ONLY) PO PRN (22:16)
[2016-12-01] MEDS ORDERED: METHADONE HCL 5 MG TABLET (FOR DETOX USE ONLY) PO SCH (06:00)
[2016-12-01] MEDS: PRENATAL VITAMINS W/ FOLIC ACID TABLET (FP) PO SCH (10:55)
[2016-12-01] MEDS: NICOTINE 21 MG/24 HOURS TOPICAL PATCH TD SCH (10:56)
[2016-12-01] MEDS: cloNIDine HCL 0.1 MG TABLET PO SCH ×2 (10:56→22:36)
--- NOTE | 2016-12-01 12:52 | PN ---
S Progress Note (SOAP) Subjective: Last day of meds,c/o mild withdrawal sx. Objective: 12/01/16 12:50 Vital Signs - 8 hr 12/01/16 12/01/16 06:00 09:48 Temperature 97.7 F 96.1 F L Pulse Rate 59 L 67 Respiratory 18 18 Rate Blood Pressure 118/63 135/69 Laboratory Last Values WBC 4.6 K/mm3 (4.0-10.0) 11/27/16 06:30 RBC 4.63 M/mm3 (4.00-5.60) 11/27/16 06:30 Hgb 14.1 GM/dL (11.7-16.9) 11/27/16 06:30 Hct 41.3 % (35.4-49) 11/27/16 06:30 MCV 89.2 fl (80-96) 11/27/16 06:30 MCH 30.4 pg (25.7-33.7) 11/27/16 06:30 MCHC 34.1 g/dl (32.0-35.9) 11/27/16 06:30 RDW 12.9 % (11.9-15.9) 11/27/16 06:30 Plt Count 289 K/MM3 (134-434) D 11/27/16 06:30 MPV 8.6 fl (7.5-11.1) 11/27/16 06:30 Sodium 143 mmol/L (136-145) 11/27/16 06:30 Potassium 4.8 mmol/L (3.5-5.1) 11/27/16 06:30 Chloride 105 mmol/L (98-107) 11/27/16 06:30 Carbon Dioxide 33 mmol/L (21-32) H 11/27/16 06:30 Anion Gap 5 (8-16) L 11/27/16 06:30 BUN 14 mg/dL (7-18) 11/27/16 06:30 Creatinine 1.0 mg/dL (0.7-1.3) 11/27/16 06:30 Creat Clearance w eGFR > 60 (>60) 11/27/16 06:30 Random Glucose 82 mg/dL (74-106) 11/27/16 06:30 Calcium 8.8 mg/dL (8.5-10.1) 11/27/16 06:30 Total Bilirubin 0.5 mg/dL (0.2-1.0) D 11/27/16 06:30 AST 51 U/L (15-37) H D 11/27/16 06:30 ALT 144 U/L (12-78) H D 11/27/16 06:30 Alkaline Phosphatase 63 U/L (45-117) D 11/27/16 06:30 Total Protein 6.3 g/dl (6.4-8.2) L 11/27/16 06:30 Albumin 3.2 g/dl (3.4-5.0) L 11/27/16 06:30 Urine Color Yellow 11/26/16 23:00 Urine Appearance Clear 11/26/16 23:00 Urine pH 5.0 (5.0-8.0) D 11/26/16 23:00 Ur Specific [place] 1.025 (1.005-1.025) 11/26/16 23:00 Urine Protein Negative (NEGATIVE) 11/26/16 23:00 Urine Glucose (UA) Negative (NEGATIVE) 11/26/16 23:00 Urine Ketones Negative (NEGATIVE) 11/26/16 23:00 Urine Blood Negative (NEGATIVE) 11/26/16 23:00 Urine Nitrite Negative (NEGATIVE) 11/26/16 23:00 Urine Bilirubin Negative (NEGATIVE) 11/26/16 23:00 Urine Urobilinogen Negative mg/dL (0.2-1.0) 11/26/16 23:00 Ur Leukocyte Esterase Negative (NEGATIVE) 11/26/16 23:00 RPR Titer Nonreactive (NONREACTIVE) 11/27/16 06:30 labs noted Assessment: 12/01/16 12:51 Withdrawal sx. Plan: Continue detox
[2016-12-01] MEDS: hydrOXYzine PAMOATE 50 MG CAPSULE (FP) PO PRN (17:09)
[2016-12-01] MEDS: THIAMINE HCL 100 MG TABLET (FP) PO SCH (22:36)
[2016-12-01] MEDS: ZOLPIDEM TARTRATE 10 MG TABLET (PARK CARE ONLY) PO PRN (22:37)
[2016-12-02] MEDS: cloNIDine HCL 0.1 MG TABLET PO SCH ×2 (11:10→22:57)
[2016-12-02] MEDS: NICOTINE 21 MG/24 HOURS TOPICAL PATCH TD SCH (11:10)
[2016-12-02] MEDS: PRENATAL VITAMINS W/ FOLIC ACID TABLET (FP) PO SCH (11:10)
--- NOTE | 2016-12-02 13:12 | PN ---
[facility] Progress Note (SOAP) Subjective: Sweating,interrupted sleep,restless Objective: 12/02/16 13:10 Vital Signs - 8 hr 12/02/16 12/02/16 06:00 10:00 Temperature 97.7 F 97.0 F L Pulse Rate 65 79 Respiratory 18 18 Rate Blood Pressure 143/75 133/72 Laboratory Last Values WBC 4.6 K/mm3 (4.0-10.0) 11/27/16 06:30 RBC 4.63 M/mm3 (4.00-5.60) 11/27/16 06:30 Hgb 14.1 GM/dL (11.7-16.9) 11/27/16 06:30 Hct 41.3 % (35.4-49) 11/27/16 06:30 MCV 89.2 fl (80-96) 11/27/16 06:30 MCH 30.4 pg (25.7-33.7) 11/27/16 06:30 MCHC 34.1 g/dl (32.0-35.9) 11/27/16 06:30 RDW 12.9 % (11.9-15.9) 11/27/16 06:30 Plt Count 289 K/MM3 (134-434) D 11/27/16 06:30 MPV 8.6 fl (7.5-11.1) 11/27/16 06:30 Sodium 143 mmol/L (136-145) 11/27/16 06:30 Potassium 4.8 mmol/L (3.5-5.1) 11/27/16 06:30 Chloride 105 mmol/L (98-107) 11/27/16 06:30 Carbon Dioxide 33 mmol/L (21-32) H 11/27/16 06:30 Anion Gap 5 (8-16) L 11/27/16 06:30 BUN 14 mg/dL (7-18) 11/27/16 06:30 Creatinine 1.0 mg/dL (0.7-1.3) 11/27/16 06:30 Creat Clearance w eGFR > 60 (>60) 11/27/16 06:30 Random Glucose 82 mg/dL (74-106) 11/27/16 06:30 Calcium 8.8 mg/dL (8.5-10.1) 11/27/16 06:30 Total Bilirubin 0.5 mg/dL (0.2-1.0) D 11/27/16 06:30 AST 51 U/L (15-37) H D 11/27/16 06:30 ALT 144 U/L (12-78) H D 11/27/16 06:30 Alkaline Phosphatase 63 U/L (45-117) D 11/27/16 06:30 Total Protein 6.3 g/dl (6.4-8.2) L 11/27/16 06:30 Albumin 3.2 g/dl (3.4-5.0) L 11/27/16 06:30 Urine Color Yellow 11/26/16 23:00 Urine Appearance Clear 11/26/16 23:00 Urine pH 5.0 (5.0-8.0) D 11/26/16 23:00 Ur Specific [place] 1.025 (1.005-1.025) 11/26/16 23:00 Urine Protein Negative (NEGATIVE) 11/26/16 23:00 Urine Glucose (UA) Negative (NEGATIVE) 11/26/16 23:00 Urine Ketones Negative (NEGATIVE) 11/26/16 23:00 Urine Blood Negative (NEGATIVE) 11/26/16 23:00 Urine Nitrite Negative (NEGATIVE) 11/26/16 23:00 Urine Bilirubin Negative (NEGATIVE) 11/26/16 23:00 Urine Urobilinogen Negative mg/dL (0.2-1.0) 11/26/16 23:00 Ur Leukocyte Esterase Negative (NEGATIVE) 11/26/16 23:00 RPR Titer Nonreactive (NONREACTIVE) 11/27/16 06:30 labs noted Assessment: 12/02/16 13:11 Withdrawal sx. Plan: Continue detox
[2016-12-02] MEDS: hydrOXYzine PAMOATE 50 MG CAPSULE (FP) PO PRN (13:46)
[2016-12-02] MEDS: THIAMINE HCL 100 MG TABLET (FP) PO SCH (22:57)
[2016-12-02] MEDS: CYCLOBENZAPRINE HCL 10 MG TABLET (FP) PO PRN (22:58)
[2016-12-02] MEDS: diphenhydrAMINE HCL 50 MG CAPSULE PO PRN (22:59)
--- NOTE | 2016-12-03 08:44 | DS ---
[facility] Detox Discharge Summary Admission Date: 11/26/16 - History Present History: Alcohol Dependence, Cannabis Dependence, Cocaine Dependence, Opioid Dependence Pertinent Past History: NICOTINE DEPENDENCE ASTHMA - Physical Exam Results Vital Signs: Vital Signs Temperature 96.3 F L 12/03/16 06:00 Pulse Rate 55 L 12/03/16 06:00 Respiratory Rate 16 12/03/16 06:00 Blood Pressure 105/55 12/03/16 06:00 O2 Sat by Pulse Oximetry (%) Pertinent Admission Physical Exam Findings: WITHDRAWAL SYMPTOM - Treatment Hospital Course: Detox Protocol Followed, Detoxed Safely, Responded well, Discharged Condition Good, Rehab Referral Accepted Patient has Accepted a Rehab Referral to: [facility] - Medication Discharge Medications: Ambulatory Orders Albuterol Sulfate Inhaler - [Ventolin HFA Inhaler -] 2 inh PO Q4H PRN 05/22/16 - Diagnosis (1) Alcohol dependence with uncomplicated withdrawal Current Visit: Yes Status: Acute (2) Cannabis dependence Current Visit: Yes Status: Acute (3) Cocaine dependence, uncomplicated Current Visit: Yes Status: Acute (4) Insomnia Current Visit: Yes Status: Acute (5) Nicotine dependence Current Visit: Yes Status: Acute Qualifiers: Nicotine product type: cigarettes Substance use status: uncomplicated Qualified Code(s): F17.210 - Nicotine dependence, cigarettes, uncomplicated (6) Opioid dependence with withdrawal Current Visit: Yes Status: Acute (7) Asthma Current Visit: Yes Status: Chronic Qualifiers: Asthma severity: mild intermittent Asthma complication type: uncomplicated Qualified Code(s): J45.20 - Mild intermittent asthma, uncomplicated (8) Drug-induced mood disorder Current Visit: Yes Status: Chronic (9) Psychotic affective disorder Current Visit: No Status: Acute - AMA Did Patient Leave Against Medical Advice: No
[2016-12-03] MEDS: cloNIDine HCL 0.1 MG TABLET PO SCH (09:19)
[2016-12-03] MEDS: PRENATAL VITAMINS W/ FOLIC ACID TABLET (FP) PO SCH (09:19)
[2016-12-03] MEDS: NICOTINE 21 MG/24 HOURS TOPICAL PATCH TD SCH (09:19)
[2016-12-03 09:55] VITALS: BP 139/77; PULSE 69; TEMP 97.9
[2016-12-03] MEDS: CYCLOBENZAPRINE HCL 10 MG TABLET (FP) PO PRN (10:21)
[2016-12-03] MEDS: hydrOXYzine PAMOATE 50 MG CAPSULE (FP) PO PRN (10:21)
== END 2016-12-03 10:59 | disposition home or self-care (01) | DRG 773 ==
LOC: YASAS 11:08 → Y6N 15:29
PROVIDERS: ADMIT Internal Medicine; ATTEND Internal Medicine
PROC: HZ2ZZZZ Detoxification Services for Substance Abuse Treatment (ICD-10-PCS; principal; 2016-11-26)
DX: F11.23 Opioid dependence with withdrawal (principal); F10.230 Alcohol dependence with withdrawal, uncomplicated; F14.20 Cocaine dependence, uncomplicated; F12.20 Cannabis dependence, uncomplicated; F17.210 Nicotine dependence, cigarettes, uncomplicated; F19.24 Other psychoactive substance dependence with psychoactive substance-induced mood disorder; F23 Brief psychotic disorder; R00.1 Bradycardia, unspecified; G47.00 Insomnia, unspecified; J45.20 Mild intermittent asthma, uncomplicated; Z91.013 Allergy to seafood
CPT/HCPCS: 36415; 80053; 81003; 85027; 86593; 93005; 93010

== ENCOUNTER 2017-04-10 18:01 | Inpatient (IN) | payer OTHER ==
[2017-04-10 18:43] VITALS: BMI 28.3
--- NOTE | 2017-04-10 20:14 | HP ---
COWS - Scale Resting Pulse: 0= [place] 80 or Below Sweatin= Chills/Flushing Restless Observation: 3= Extraneous Movement Pupil Size: 0= Normal to Room Light Bone or Joint Aches: 2= Severe Diffuse Aches Runny Nose/ Eye Tearin= Runny Nose/Eyes GI Upset > 30mins: 2= Nausea/Diarrhea Tremor Observation: 2= Slight Tremor Visible Yawning Observation: 0= None Anxiety or Irritability: 2=Irritable/Anxious Goose Flesh Skin: 0=Smooth Skin COWS Score: 14 CIWA Score - CIWA Score Nausea/Vomitin-Mild Nausea/No Vomiting Muscle Tremors: 4-Moderate,w/Arms Extend Anxiety: 3 Agitation: 3 Paroxysmal Sweats: 1-Minimal Palms Moist Orientation: 1-Uncertain about Date Tacttile Disturbances: 0-None Auditory Disturbances: 1-Very Mild Visual Disturbances: 0-None Headache: 1-Very Mild CIWA-Ar Total Score: 15 Admission ROS [facility] - HPI Chief Complaint: withdrawal sx Allergies/Adverse Reactions: Allergies Allergy/AdvReac Type Severity Reaction Status Date / Time Fish Containing Products Allergy Severe Difficulty Verified 04/10/17 19:24 Breathing No Known Drug Allergies Allergy Verified 04/10/17 19:24 History of Present Illness: 26 years old male with long history of alcohol opiates nicotine dependence has asthma and depression is admitted to detox Exam Limitations: No Limitations - Ebola screening Have you traveled outside of the country in the last 21 days: No Have you had contact with anyone from an Ebola affected area: No Have you been sick,other than usual withdrawal symptoms: No Do you have a fever: No - Review of Systems Constitutional: Changes in sleep, Weight Stable EENT: reports: No Symptoms Reported Respiratory: reports: SOB with Exertion Cardiac: reports: No Symptoms Reported GI: reports: Nausea, Poor Fluid Intake, Indigestion, Abdominal cramping : reports: No Symptoms Reported Musculoskeletal: reports: Back Pain, Joint Pain, Muscle Pain, Neck Pain Integumentary: reports: Change in Color (iv opiate both inner elbows neck) Neuro: reports: Tremors Endocrine: reports: No Symptoms Reported Hematology: reports: No Symptoms Reported Psychiatric: reports: Judgement Intact, Anxious, Depressed Other Systems: Reviewed and Negative Patient History - Patient Medical History Hx Anemia: No Hx Asthma: Yes (MDI) Hx Chronic Obstructive Pulmonary Disease (COPD): No Hx Cancer: No Hx Cardiac Disorders: No Hx Congestive Heart Failure: No Hx Hypertension: No Hx Hypercholesterolemia: No HX Cerebrovascular Accident: No Hx Seizures: No Hx Dementia: No Hx Diabetes: No Hx Gastrointestinal Disorders: No Hx Liver Disease: No Hx Genitourinary Disorders: No Hx Sexually Transmitted Disorders: No Hx Renal Disease (ESRD): No Hx Thyroid Disease: No Hx Human Immunodeficiency Virus (HIV): No (NEGATIVE HX) Hx Hepatitis C: No (negative) Hx Depression: Yes Hx Suicide Attempt: No (DENIES) Hx Bipolar Disorder: No Hx Schizophrenia: No - Patient Surgical History Past Surgical History: No Hx Neurologic Surgery: No Hx Cataract Extraction: No Hx Cardiac Surgery: No Hx Lung Surgery: No Hx Breast Surgery: No Hx Breast Biopsy: No Hx Abdominal Surgery: No Hx Appendectomy: No Hx Cholecystectomy: No Hx Genitourinary Surgery: No Hx Orthopedic Surgery: No - PPD History Previous Implant?: Yes Documented Results: Negative w/proof Implanted On Prior [facility] Admission?: Yes Date: 05/24/16 Results: 0 mm PPD to be Administered?: No - Smoking Cessation Smoking history: Current every day smoker Have you smoked in the past 12 months: Yes Aproximately how many cigarettes per day: 30 Cigars Per Day: 0 Hx Chewing Tobacco Use: No Initiated information on smoking cessation: Yes 'Breaking Loose' booklet given: 04/10/17 - Substance & Tx. History Hx Alcohol Use: Yes Hx Substance Use: Yes Substance Use Type: Alcohol, Cocaine, Heroin Hx Substance Use Treatment: Yes (11/2016 [facility] - Substances Abused Heroin Route: Injection Frequency: Daily Amount used: 14- bags Age of first use: 21 Date of Last Use: 04/10/17 Alcohol Route: Oral Frequency: Daily Amount used: beers- 7cans x 40oz Age of first use: 15 Date of Last Use: 04/09/17 percocet Route: Oral Frequency: Daily Amount used: 40 mg Age of first use: 19 Date of Last Use: 04/09/17 xanax Route: Oral Frequency: Daily Amount used: 4mg Age of first use: 19 Date of Last Use: 03/29/17 berry Route: Injection Frequency: Daily Amount used: 7 bags Age of first use: 21 Date of Last Use: 04/10/17 Family Disease History - Family Disease History Family Disease History: Respiratory: Brother (ASTHMA), Sister (ASTHMA) Admission Physical Exam [facility] - Vital Signs Vital Signs: Vital Signs - 24 hr 04/10/17 18:40 Temperature 98.8 F Pulse Rate 80 Respiratory 18 Rate Blood Pressure 144/74 - Physical General Appearance: Yes: Appropriately Dressed, Mild Distress, Tremorous, Irritable, Sweating, Anxious HEENTM: Yes: Hearing grossly Normal, Normal ENT Inspection, Normocephalic, Normal Voice Respiratory: Yes: Chest Non-Tender, Lungs Clear, Normal Breath Sounds, No Respiratory Distress, No Accessory Muscle Use Neck: Yes: Supple, Trachea in good position Breast: Yes: Breasts Symetrical Cardiology: Yes: Regular Rhythm, Regular Rate, S1, S2 Abdominal: Yes: Normal Bowel Sounds, Non Tender, Soft Genitourinary: Yes: Within Normal Limits Back: Yes: Normal Inspection Musculoskeletal: Yes: full range of Motion, Gait Steady, Back pain, Muscle Pain Extremities: Yes: Normal Range of Motion, Non-Tender, Tremors Integumentary: Yes: Warm, Track Chakraborty Lymphatic: Yes: Within Normal Limits - Diagnostic (1) GERD (gastroesophageal reflux disease) Current Visit: Yes Status: Chronic Qualifiers: Esophagitis presence: without esophagitis Qualified Code(s): K21.9 - Gastro -esophageal reflux disease without esophagitis (2) Alcohol dependence with uncomplicated withdrawal Current Visit: Yes Status: Acute (3) Cocaine dependence, uncomplicated Current Visit: Yes Status: Chronic (4) Nicotine dependence Current Visit: Yes Status: Acute Qualifiers: Nicotine product type: cigarettes Substance use status: in withdrawal Qualified Code(s): F17.213 - Nicotine dependence, cigarettes, with withdrawal (5) Opioid dependence with withdrawal Current Visit: Yes Status: Acute (6) Asthma Current Visit: Yes Status: Chronic Qualifiers: Asthma severity: mild Asthma complication type: uncomplicated Cleared for Admission S - Detox or Rehab [facility] Level of Care: Medically Managed Detox Regimen/Protocol: Methadone/Librium S Breath Alcohol Content Breath Alcohol Content: 0 Urine Drug Screen - Results Drug Screen Negative: No Urine Drug Screen Results: THC-Marijuana
[2017-04-10] MEDS ORDERED: MAG HYDROX/AL HYDROX/SIMETH 30 ML UNIT-DOSE CUP PO PRN (20:21)
[2017-04-10] MEDS ORDERED: chlordiazePOXIDE HCL 25 MG CAPSULE PO PRN (20:21)
[2017-04-10] MEDS ORDERED: ACETAMINOPHEN 325 MG TABLET (FP) PO PRN (20:21)
[2017-04-10] MEDS ORDERED: MAGNESIUM CITRATE 300 ML BOTTLE PO PRN (20:21)
[2017-04-10] MEDS ORDERED: guaiFENesin/D-METHORPHAN HB 10 ML UNIT-DOSE CUPS PO PRN (20:21)
[2017-04-10] MEDS ORDERED: MENTHOL/PHENOL 1 EACH UD MM PRN (20:21)
[2017-04-10] MEDS ORDERED: MAGNESIUM HYDROX 2400MG/30ML ORAL SUSPENSION 30 ML CUP PO PRN (20:21)
[2017-04-10] MEDS ORDERED: P-EPHED 60MG/TRIPROLIDI 2.5MG TABLET PO PRN (20:21)
[2017-04-10] MEDS ORDERED: METHADONE HCL 10 MG TABLET (FOR DETOX USE ONLY) PO ONE ×2 (20:21→23:00)
[2017-04-10] MEDS ORDERED: NICOTINE POLACRILEX 4 MG GUM BC PRN (20:21)
[2017-04-10] MEDS ORDERED: LOPERAMIDE HCL 2 MG CAPSULE PO PRN (20:21)
[2017-04-10] MEDS ORDERED: ALBUTEROL SO4 18 GM HFA INHALER IH PRN (20:23)
[2017-04-10] MEDS ORDERED: METHADONE HCL 10 MG TABLET (FOR DETOX USE ONLY) ONE (22:29)
[2017-04-10] MEDS: chlordiazePOXIDE HCL 25 MG CAPSULE PO SCH (22:30)
[2017-04-10] MEDS: THIAMINE HCL 100 MG TABLET (FP) PO SCH (22:30)
[2017-04-10] MEDS: RANITIDINE HCL 150 MG TABLET (FP) PO SCH (22:30)
[2017-04-10 23:55] LABS: URINE APPEARANCE CLEAR; URINE BILIRUBIN NEGATIVE (NEGATIVE); URINE BLOOD NEGATIVE (NEGATIVE); URINE COLOR YELLOW; URINE GLUCOSE (UA) NEGATIVE (NEGATIVE); URINE KETONE NEGATIVE (NEGATIVE); URINE LEUK ESTERASE NEGATIVE (NEGATIVE); URINE NITRITE NEGATIVE (NEGATIVE); URINE PROTEIN NEGATIVE (NEGATIVE)
[2017-04-11] MEDS: chlordiazePOXIDE HCL 25 MG CAPSULE PO SCH ×4 (05:43→22:37)
--- NOTE | 2017-04-11 07:46 | CONSULT ---
[facility] Psychiatric Consult - Data Date of interview: 04/11/17 Admission source: [facility] Identifying data: This is 26 years old male with no psychiatric hospitalization history intoxicated with: Alcohol, Cocaine Opioids.Cannabis and Nicotine Substance Abuse History: Smoking history: Current every day smoker. Have you smoked in the past 12 months: Yes. Aproximately how many cigarettes per day: 30. Cigars Per Day: 0. Hx Chewing Tobacco Use: No. Initiated information on smoking cessation: Yes. 'Breaking Loose' booklet given: 04/10/17. - Substance & Tx. History. Hx Alcohol Use: Yes. Hx Substance Use: Yes. Substance Use Type : Alcohol, Cocaine, Heroin. Hx Substance Use Treatment: Yes (11/2016 [facility]) . - Substances Abused. Heroin. Route: Injection. Frequency: Daily. Amount used: 14- bags. Age of first use: 21. Date of Last Use: 04/10/17. Alcohol. Route: Oral. Frequency: Daily. Amount used: beers- 7cans x 40oz. Age of first use: 15. Date of Last Use: 04/09/17. percocet. Route: Oral. Frequency: Daily. Amount used: 40 mg. Age of first use: 19. Date of Last Use : 04/09/17. xanax. Route: Oral. Frequency: Daily. Amount used: 4mg. Age of first use: 19. Date of Last Use: 03/29/17. berry. Route: Injection. Frequency: Daily. Amount used: 7 bags. Age of first use: 21. Date of Last Use : 04/10/17 Medical History: GERD, Asthma Psychiatric History: Denies past psychiatric history, denies suicidal history Physical/Sexual Abuse/Trauma History: Denies Additional Comment: Trazodone 100mg po qhs Mental Status Exam - Mental Status Exam Alert and Oriented to: Person Cognitive Function: Fair Patient Appearance: Unkempt Mood: Apprehensive Affect: Mood Congruent Patient Behavior: Cooperative Speech Pattern: Appropriate Voice Loudness: Normal Thought Process: Goal Oriented Thought Disorder: Being Controlled Hallucinations: Denies Suicidal Ideation: Denies Homicidal Ideation: Denies Insight/Judgement: Fair Sleep: Difficulty falling asleep Appetite: Fair Muscle strength/Tone: Normal Gait/Station: Normal Additional Comments: Observation. Detox Unit Care Protocol Psychiatric Findings - Problem List ([place] 1, 2,3) (1) Alcohol dependence with uncomplicated withdrawal Current Visit: Yes Status: Acute (2) Nicotine dependence Current Visit: Yes Status: Acute Qualifiers: Nicotine product type: cigarettes Substance use status: in withdrawal Qualified Code(s): F17.213 - Nicotine dependence, cigarettes, with withdrawal (3) Opioid dependence with withdrawal Current Visit: Yes Status: Acute (4) Cocaine dependence, uncomplicated Current Visit: Yes Status: Chronic (5) Cannabis dependence Current Visit: No Status: Acute (6) Drug-induced mood disorder Current Visit: No Status: Chronic - Initial Treatment Plan Initial Treatment Plan: Observation. Detox Unit Care Protocol
[2017-04-11] MEDS ORDERED: METHADONE HCL 10 MG TABLET (FOR DETOX USE ONLY) PO SCH (10:00)
[2017-04-11 10:18] LABS: MCH 28.8 pg (25.7-33.7); MCHC 33.3 g/dl (32.0-35.9); MEAN CELL VOLUME 86.4 fl (80-96); MEAN PLT VOLUME 8.2 fl (7.5-11.1); PLATELET COUNT 340 K/MM3 (134-434); WHITE BLOOD COUNT 5.2 K/mm3 (4.0-10.0)
[2017-04-11 10:24] LABS: ALBUMIN 3.2 g/dl (3.4-5.0); ANION GAP 8 (8-16); CO2 27 mmol/L (21-32); GLUCOSE,RANDOM 93 mg/dL (74-106); SGOT/AST 45 U/L (15-37); SGPT/ALT 60 U/L (12-78)
[2017-04-11] MEDS: NICOTINE 21 MG/24 HOURS TOPICAL PATCH TD SCH (10:25)
[2017-04-11] MEDS: PRENATAL VITAMINS W/ FOLIC ACID TABLET (FP) PO SCH (10:25)
[2017-04-11] MEDS: RANITIDINE HCL 150 MG TABLET (FP) PO SCH ×2 (10:25→22:37)
[2017-04-11 10:26] LABS: ALK PHOS 63 U/L (45-117); BILIRUBIN,TOTAL 0.4 mg/dL (0.2-1.0); CALCIUM 8.9 mg/dL (8.5-10.1); CREATININE 0.9 mg/dL (0.7-1.3)
--- NOTE | 2017-04-11 10:46 | PN ---
[facility] CIWA - CIWA Score Nausea/Vomitin-No Nausea/No Vomiting Muscle Tremors: 4-Moderate,w/Arms Extend Anxiety: 3 Agitation: 3 Paroxysmal Sweats: 3 Orientation: 0-Oriented Tacttile Disturbances: 0-None Auditory Disturbances: 0-None Visual Disturbances: 0-None Headache: 0-None Present CIWA-Ar Total Score: 13 S COWS - Scale Resting Pulse: 0= [place] 80 or Below Sweatin=Flushed/Facial Moisture Restless Observation: 1= Difficult to Sit Still Pupil Size: 0= Normal to Room Light Bone or Joint Aches: 2= Severe Diffuse Aches Runny Nose/ Eye Tearin= Runny Nose/Eyes GI Upset > 30mins: 2= Nausea/Diarrhea Tremor Observation of Outstretched Hands: 1= Tremor [place], Not Seen Yawning Observation: 2= >3x During Session Anxiety or Irritability: 1=Feels Anxious/Irritable Goose Flesh Skin: 0=Smooth Skin COWS Score: 13 [facility] Progress Note (SOAP) Subjective: sweats shakes interrupted sleep body aches irritable Objective: 04/11/17 10:48 Vital Signs Temperature 97 F L 04/11/17 09:54 Pulse Rate 63 04/11/17 09:54 Respiratory Rate 18 04/11/17 09:54 Blood Pressure 140/67 04/11/17 09:54 O2 Sat by Pulse Oximetry (%) Laboratory Tests 04/10/17 04/11/17 04/11/17 21:22 07:30 07:30 WBC 5.2 RBC 4.72 Hgb 13.6 Hct 40.8 MCV 86.4 MCH 28.8 MCHC 33.3 RDW 13.0 Plt Count 340 MPV 8.2 Sodium 141 Potassium 4.5 Chloride 106 Carbon Dioxide 27 Anion Gap 8 BUN 19 H D Creatinine 0.9 Creat Clearance w eGFR > 60 Random Glucose 93 Calcium 8.9 Total Bilirubin 0.4 AST 45 H ALT 60 D Alkaline Phosphatase 63 Total Protein 7.0 Albumin 3.2 L Urine Color Yellow Urine Appearance Clear Urine pH 6.0 Ur Specific [place] 1.023 Urine Protein Negative Urine Glucose (UA) Negative Urine Ketones Negative Urine Blood Negative Urine Nitrite Negative Urine Bilirubin Negative Urine Urobilinogen 2.0 aaox3 ambulating no acute distress Assessment: 04/11/17 10:49 withdrawal sx Plan: continue detox increase fluids
[2017-04-11 11:09] LABS: HIV 1 & 2 AB NEGATIVE; HIV 1 AGp24 NEGATIVE
--- NOTE | 2017-04-11 11:44 | EKG ---
Test Reason : Blood Pressure : / mmHG Vent. Rate : 079 BPM Atrial Rate : 079 BPM P-R Int : 102 ms QRS Dur : 088 ms QT Int : 390 ms P-R-T Axes : 025 050 048 degrees QTc Int : 447 ms SINUS RHYTHM WITH SHORT NH SEPTAL INFARCT , AGE UNDETERMINED ABNORMAL ECG WHEN COMPARED WITH ECG OF 26-NOV-2016 16:32, VENT. RATE HAS INCREASED BY 26 BPM SEPTAL INFARCT IS NOW PRESENT Confirmed by CRUZ HARRIS, MIRIAM ([id number]) on 04/11/2017 11:43:51 AM Referred By: Confirmed By:MIRIAM ARROYO MD
[2017-04-11 15:10] LABS: URINE LEUK ESTERASE Negative (NEGATIVE)
[2017-04-11] MEDS: THIAMINE HCL 100 MG TABLET (FP) PO SCH (22:37)
[2017-04-12] MEDS: chlordiazePOXIDE HCL 25 MG CAPSULE PO SCH ×3 (05:25→17:22)
[2017-04-12] MEDS: METHADONE HCL 5 MG TABLET (FOR DETOX USE ONLY) PO SCH (09:00)
[2017-04-12] MEDS: RANITIDINE HCL 150 MG TABLET (FP) PO SCH ×2 (09:51→22:42)
[2017-04-12] MEDS: NICOTINE 21 MG/24 HOURS TOPICAL PATCH TD SCH (09:52)
[2017-04-12] MEDS: PRENATAL VITAMINS W/ FOLIC ACID TABLET (FP) PO SCH (09:52)
[2017-04-12] MEDS: diphenhydrAMINE HCL 25 MG CAPSULE (FP) PO PRN (10:18)
--- NOTE | 2017-04-12 10:23 | PN ---
[facility] CIWA - CIWA Score Nausea/Vomitin-No Nausea/No Vomiting Muscle Tremors: 3 Anxiety: 3 Agitation: 3 Paroxysmal Sweats: 3 Orientation: 0-Oriented Tacttile Disturbances: 0-None Auditory Disturbances: 0-None Visual Disturbances: 0-None Headache: 0-None Present CIWA-Ar Total Score: 12 [facility] COWS - Scale Resting Pulse: 0= [place] 80 or Below Sweatin=Flushed/Facial Moisture Restless Observation: 1= Difficult to Sit Still Pupil Size: 0= Normal to Room Light Bone or Joint Aches: 2= Severe Diffuse Aches Runny Nose/ Eye Tearin= Nasal Congestion GI Upset > 30mins: 0= None Tremor Observation of Outstretched Hands: 2= Slight Tremor Visible Yawning Observation: 2= >3x During Session Anxiety or Irritability: 1=Feels Anxious/Irritable Goose Flesh Skin: 0=Smooth Skin COWS Score: 11 S Progress Note (SOAP) Subjective: irritable agitation anxiety sweats interrupted sleep Objective: 04/12/17 10:25 Vital Signs Temperature 96.3 F L 04/12/17 10:00 Pulse Rate 84 04/12/17 10:00 Respiratory Rate 20 04/12/17 10:00 Blood Pressure 130/76 04/12/17 10:00 O2 Sat by Pulse Oximetry (%) Laboratory Tests 04/10/17 04/10/17 04/11/17 07:30 21:22 07:30 WBC 5.2 RBC 4.72 Hgb 13.6 Hct 40.8 MCV 86.4 MCH 28.8 MCHC 33.3 RDW 13.0 Plt Count 340 MPV 8.2 Sodium Potassium Chloride Carbon Dioxide Anion Gap BUN Creatinine Creat Clearance w eGFR Random Glucose Calcium Total Bilirubin AST ALT Alkaline Phosphatase Total Protein Albumin Urine Color Yellow Urine Appearance Clear Urine pH 6.0 Ur Specific [place] 1.023 Urine Protein Negative Urine Glucose (UA) Negative Urine Ketones Negative Urine Blood Negative Urine Nitrite Negative Urine Bilirubin Negative Urine Urobilinogen 2.0 Ur Leukocyte Esterase Negative RPR Titer Hepatitis C Antibody >11.0 H HIV 1&2 Antibody Screen HIV P24 Antigen 04/11/17 04/11/17 04/11/17 07:30 07:30 09:00 WBC RBC Hgb Hct MCV MCH MCHC RDW Plt Count MPV Sodium 141 Potassium 4.5 Chloride 106 Carbon Dioxide 27 Anion Gap 8 BUN 19 H D Creatinine 0.9 Creat Clearance w eGFR > 60 Random Glucose 93 Calcium 8.9 Total Bilirubin 0.4 AST 45 H ALT 60 D Alkaline Phosphatase 63 Total Protein 7.0 Albumin 3.2 L Urine Color Urine Appearance Urine pH Ur Specific [place] Urine Protein Urine Glucose (UA) Urine Ketones Urine Blood Urine Nitrite Urine Bilirubin Urine Urobilinogen Ur Leukocyte Esterase RPR Titer Nonreactive Hepatitis C Antibody HIV 1&2 Antibody Screen Negative HIV P24 Antigen Negative aaox3 ambulating no acute distress Assessment: 04/12/17 10:25 withdrawal sx Plan: continue detox increase fluids visitiril prn
[2017-04-12] MEDS: hydrOXYzine PAMOATE 50 MG CAPSULE (FP) PO PRN ×2 (11:22→17:23)
[2017-04-12] MEDS: chlordiazePOXIDE 5 MG CAPSULE PO SCH (22:42)
[2017-04-12] MEDS: THIAMINE HCL 100 MG TABLET (FP) PO SCH (22:42)
[2017-04-13] MEDS: chlordiazePOXIDE 5 MG CAPSULE PO SCH ×3 (05:49→17:40)
[2017-04-13] MEDS ORDERED: CYCLOBENZAPRINE HCL 10 MG TABLET (FP) PO ONE (10:30)
--- NOTE | 2017-04-13 10:34 | PN ---
[facility] Progress Note (SOAP) Subjective: Anxiety,restless,sweating,interrupted sleep Objective: 04/13/17 10:33 Vital Signs - 8 hr 04/13/17 04/13/17 04/13/17 03:30 07:16 10:00 Temperature 97.9 F 95.9 F L Pulse Rate 59 L 74 Respiratory 18 16 16 Rate Blood Pressure 111/62 148/77 Laboratory Tests 04/10/17 04/10/17 04/11/17 07:30 21:22 07:30 WBC 5.2 RBC 4.72 Hgb 13.6 Hct 40.8 MCV 86.4 MCH 28.8 MCHC 33.3 RDW 13.0 Plt Count 340 MPV 8.2 Sodium Potassium Chloride Carbon Dioxide Anion Gap BUN Creatinine Creat Clearance w eGFR Random Glucose Calcium Total Bilirubin AST ALT Alkaline Phosphatase Total Protein Albumin Urine Color Yellow Urine Appearance Clear Urine pH 6.0 Ur Specific [place] 1.023 Urine Protein Negative Urine Glucose (UA) Negative Urine Ketones Negative Urine Blood Negative Urine Nitrite Negative Urine Bilirubin Negative Urine Urobilinogen 2.0 Ur Leukocyte Esterase Negative RPR Titer Hepatitis C Antibody >11.0 H HIV 1&2 Antibody Screen HIV P24 Antigen 04/11/17 04/11/17 04/11/17 07:30 07:30 09:00 WBC RBC Hgb Hct MCV MCH MCHC RDW Plt Count MPV Sodium 141 Potassium 4.5 Chloride 106 Carbon Dioxide 27 Anion Gap 8 BUN 19 H D Creatinine 0.9 Creat Clearance w eGFR > 60 Random Glucose 93 Calcium 8.9 Total Bilirubin 0.4 AST 45 H ALT 60 D Alkaline Phosphatase 63 Total Protein 7.0 Albumin 3.2 L Urine Color Urine Appearance Urine pH Ur Specific [place] Urine Protein Urine Glucose (UA) Urine Ketones Urine Blood Urine Nitrite Urine Bilirubin Urine Urobilinogen Ur Leukocyte Esterase RPR Titer Nonreactive Hepatitis C Antibody HIV 1&2 Antibody Screen Negative HIV P24 Antigen Negative labs noted Assessment: 04/13/17 10:33 Withdrawal sx. Plan: Continue detox
[2017-04-13] MEDS: PRENATAL VITAMINS W/ FOLIC ACID TABLET (FP) PO SCH (11:04)
[2017-04-13] MEDS: METHADONE HCL 5 MG TABLET (FOR DETOX USE ONLY) PO SCH (11:04)
[2017-04-13] MEDS: RANITIDINE HCL 150 MG TABLET (FP) PO SCH ×2 (11:04→22:42)
[2017-04-13] MEDS: cloNIDine HCL 0.1 MG TABLET PO SCH ×2 (11:06→22:42)
[2017-04-13] MEDS: NICOTINE 21 MG/24 HOURS TOPICAL PATCH TD SCH (11:09)
[2017-04-13] MEDS: hydrOXYzine PAMOATE 50 MG CAPSULE (FP) PO PRN (12:51)
[2017-04-13] MEDS: CYCLOBENZAPRINE HCL 5 MG TABLET PO SCH ×2 (14:36→22:42)
[2017-04-13] MEDS: diphenhydrAMINE HCL 25 MG CAPSULE (FP) PO PRN (17:41)
[2017-04-13] MEDS: THIAMINE HCL 100 MG TABLET (FP) PO SCH (22:42)
[2017-04-13] MEDS: chlordiazePOXIDE HCL 10 MG CAPSULE PO SCH (22:43)
[2017-04-13] MEDS: traZODone HCL 100 MG TABLET (FP) PO SCH (22:43)
[2017-04-14] MEDS: chlordiazePOXIDE HCL 10 MG CAPSULE PO SCH ×3 (05:17→18:15)
[2017-04-14] MEDS: CYCLOBENZAPRINE HCL 5 MG TABLET PO SCH ×3 (05:17→22:22)
[2017-04-14] MEDS ORDERED: METHADONE HCL 10 MG TABLET (FOR DETOX USE ONLY) PO SCH (10:00)
[2017-04-14] MEDS: cloNIDine HCL 0.1 MG TABLET PO SCH ×2 (10:27→22:22)
[2017-04-14] MEDS: PRENATAL VITAMINS W/ FOLIC ACID TABLET (FP) PO SCH (10:27)
[2017-04-14] MEDS: RANITIDINE HCL 150 MG TABLET (FP) PO SCH ×2 (10:27→22:22)
[2017-04-14] MEDS: NICOTINE 21 MG/24 HOURS TOPICAL PATCH TD SCH (10:27)
--- NOTE | 2017-04-14 11:55 | PN ---
[facility] Progress Note (SOAP) Subjective: anxiousness insomnia Objective: 04/14/17 11:55 Vital Signs Temperature 97.2 F L 04/14/17 10:37 Pulse Rate 69 04/14/17 10:37 Respiratory Rate 18 04/14/17 10:37 Blood Pressure 128/62 04/14/17 10:37 O2 Sat by Pulse Oximetry (%) Laboratory Last Values WBC 5.2 K/mm3 (4.0-10.0) 04/11/17 07:30 RBC 4.72 M/mm3 (4.00-5.60) 04/11/17 07:30 Hgb 13.6 GM/dL (11.7-16.9) 04/11/17 07:30 Hct 40.8 % (35.4-49) 04/11/17 07:30 MCV 86.4 fl (80-96) 04/11/17 07:30 MCH 28.8 pg (25.7-33.7) 04/11/17 07:30 MCHC 33.3 g/dl (32.0-35.9) 04/11/17 07:30 RDW 13.0 % (11.9-15.9) 04/11/17 07:30 Plt Count 340 K/MM3 (134-434) 04/11/17 07:30 MPV 8.2 fl (7.5-11.1) 04/11/17 07:30 Sodium 141 mmol/L (136-145) 04/11/17 07:30 Potassium 4.5 mmol/L (3.5-5.1) 04/11/17 07:30 Chloride 106 mmol/L (98-107) 04/11/17 07:30 Carbon Dioxide 27 mmol/L (21-32) 04/11/17 07:30 Anion Gap 8 (8-16) 04/11/17 07:30 BUN 19 mg/dL (7-18) H D 04/11/17 07:30 Creatinine 0.9 mg/dL (0.7-1.3) 04/11/17 07:30 Creat Clearance w eGFR > 60 (>60) 04/11/17 07:30 Random Glucose 93 mg/dL (74-106) 04/11/17 07:30 Calcium 8.9 mg/dL (8.5-10.1) 04/11/17 07:30 Total Bilirubin 0.4 mg/dL (0.2-1.0) 04/11/17 07:30 AST 45 U/L (15-37) H 04/11/17 07:30 ALT 60 U/L (12-78) D 04/11/17 07:30 Alkaline Phosphatase 63 U/L (45-117) 04/11/17 07:30 Total Protein 7.0 g/dl (6.4-8.2) 04/11/17 07:30 Albumin 3.2 g/dl (3.4-5.0) L 04/11/17 07:30 Urine Color Yellow 04/10/17 21:22 Urine Appearance Clear 04/10/17 21:22 Urine pH 6.0 (5.0-8.0) 04/10/17 21:22 Ur Specific [place] 1.023 (1.001-1.035) 04/10/17 21:22 Urine Protein Negative (NEGATIVE) 04/10/17 21:22 Urine Glucose (UA) Negative (NEGATIVE) 04/10/17 21:22 Urine Ketones Negative (NEGATIVE) 04/10/17 21:22 Urine Blood Negative (NEGATIVE) 04/10/17 21:22 Urine Nitrite Negative (NEGATIVE) 04/10/17 21:22 Urine Bilirubin Negative (NEGATIVE) 04/10/17 21:22 Urine Urobilinogen 2.0 mg/dL (0.2-1.0) 04/10/17 21:22 Ur Leukocyte Esterase Negative (NEGATIVE) 04/10/17 21:22 RPR Titer Nonreactive (NONREACTIVE) 04/11/17 07:30 Hepatitis C Antibody >11.0 s/co ratio (0.0-0.9) H 04/10/17 07:30 HIV 1&2 Antibody Screen Negative 04/11/17 09:00 HIV P24 Antigen Negative 04/11/17 09:00 lab noted Assessment: 04/14/17 11:55 mild withdrawal sx 04/14/17 11:55 Plan: observation with detox regimen
[2017-04-14] MEDS: hydrOXYzine PAMOATE 50 MG CAPSULE (FP) PO PRN (14:38)
[2017-04-14] MEDS: THIAMINE HCL 100 MG TABLET (FP) PO SCH (22:22)
[2017-04-14] MEDS: diphenhydrAMINE HCL 25 MG CAPSULE (FP) PO PRN (22:22)
[2017-04-14] MEDS: traZODone HCL 100 MG TABLET (FP) PO SCH (22:22)
[2017-04-15] MEDS ORDERED: METHADONE HCL 5 MG TABLET (FOR DETOX USE ONLY) PO SCH (06:00)
[2017-04-15] MEDS: CYCLOBENZAPRINE HCL 5 MG TABLET PO SCH (07:14)
--- NOTE | 2017-04-15 08:43 | DS ---
[facility] Detox Discharge Summary Admission Date: 04/10/17 Discharge Date: 04/15/17 - History Present History: Alcohol Dependence, Cocaine Dependence, Opioid Dependence - Physical Exam Results Vital Signs: Vital Signs Temperature 96.6 F L 04/15/17 06:21 Pulse Rate 63 04/15/17 06:21 Respiratory Rate 16 04/15/17 06:21 Blood Pressure 126/61 04/15/17 06:21 O2 Sat by Pulse Oximetry (%) - Treatment Hospital Course: Detox Protocol Followed, Detoxed Safely, Responded well, Discharged Condition Good, Rehab Referral Accepted - Medication Discharge Medications: Ambulatory Orders Albuterol Sulfate Inhaler - [Ventolin HFA Inhaler -] 2 inh IH Q4H PRN #0 inh Trazodone HCl 100 mg PO HS #30 tablet 04/13/17 - Diagnosis (1) Alcohol dependence with uncomplicated withdrawal Current Visit: Yes Status: Chronic (2) Nicotine dependence Current Visit: Yes Status: Chronic Qualifiers: Nicotine product type: cigarettes Substance use status: uncomplicated Qualified Code(s): F17.210 - Nicotine dependence, cigarettes, uncomplicated (3) Opioid dependence with withdrawal Current Visit: Yes Status: Chronic (4) Asthma Current Visit: Yes Status: Chronic Qualifiers: Asthma severity: mild Asthma persistence: intermittent Asthma complication type: uncomplicated Qualified Code(s): J45.20 - Mild intermittent asthma, uncomplicated (5) Cocaine dependence, uncomplicated Current Visit: Yes Status: Chronic (6) GERD (gastroesophageal reflux disease) Current Visit: Yes Status: Chronic Qualifiers: Esophagitis presence: without esophagitis Qualified Code(s): K21.9 - Gastro -esophageal reflux disease without esophagitis (7) Cannabis dependence Current Visit: Yes Status: Chronic (8) Insomnia Current Visit: No Status: Acute (9) Psychotic affective disorder Current Visit: No Status: Acute (10) Drug-induced mood disorder Current Visit: No Status: Chronic - AMA Did Patient Leave Against Medical Advice: No
[2017-04-15] MEDS: PRENATAL VITAMINS W/ FOLIC ACID TABLET (FP) PO SCH (09:05)
[2017-04-15] MEDS: RANITIDINE HCL 150 MG TABLET (FP) PO SCH (09:05)
[2017-04-15] MEDS: cloNIDine HCL 0.1 MG TABLET PO SCH (09:05)
[2017-04-15] MEDS: NICOTINE 21 MG/24 HOURS TOPICAL PATCH TD SCH (09:06)
[2017-04-15 10:07] VITALS: BP 126/69; PULSE 83; TEMP 97.9
[2017-04-16 10:13] LABS: HCV LOG 10 5.039 (.)
== END 2017-04-15 09:18 | disposition home or self-care (01) | DRG 861 ==
LOC: YASAS 18:01 → Y6N 20:39
PROVIDERS: ADMIT Internal Medicine; ATTEND Internal Medicine
PROC: HZ2ZZZZ Detoxification Services for Substance Abuse Treatment (ICD-10-PCS; principal; 2017-04-15)
DX: F17.210 Nicotine dependence, cigarettes, uncomplicated (principal); F11.23 Opioid dependence with withdrawal; F10.230 Alcohol dependence with withdrawal, uncomplicated; F14.20 Cocaine dependence, uncomplicated; F12.20 Cannabis dependence, uncomplicated; F19.24 Other psychoactive substance dependence with psychoactive substance-induced mood disorder; G47.00 Insomnia, unspecified; K21.9 Gastro-esophageal reflux disease without esophagitis
CPT/HCPCS: 36415; 80053; 81003; 85027; 86593; 86803; 87389; 87522; 93005; 93010